=== PATIENT | male | born 1965 | race Caucasian/White ===

== ENCOUNTER 2022-04-24 16:09 | Inpatient (IN) ==
[2022-04-24] MEDS ORDERED: cefTRIAXone SODIUM 1,000 MG/50 ML BAG IV STA (16:54)
[2022-04-24] MEDS ORDERED: SODIUM CHLORIDE 0.9% 1000ML 2,000 ML IV ONE (16:54)
--- NOTE | 2022-04-24 16:56 | Emergency Department Note ---
Impression & Plan Hypoxia, Fever of unknown origin, Breath shortness ED Provider Note NAME: ABBY MACARIO AGE: 56 SEX: M : 1965 ARRIVES VIA: Walk-In INFORMANT: Patient ED PROVIDER(S): Lukas Nava DO CHIEF COMPLAINT: shortness of breath HPI: Patient is a 56-year-old male who presents to the ER with past medical history of COVID back in who presents to the ER for shortness of breath. He notes this been getting worse over the past 6 months and in particu lar the past week. He has not felt well since he was diagnosed with COVID in December 2019. He admits to a cough and fevers and comment since this past in combination with night sweats. Denies any belly pain, nausea, vomiting, or diarrhea. No dysuria, urgency, or frequency. Shortness of breath is worse when he is up moving around. Does not change with lying flat or sitting up. ROS: See above HPI for pertinent positives & negatives. A total of 10 systems reviewed and were otherwise negative. PAST MEDICAL HISTORY:See Below PAST SURGICAL HISTORY:See Below FAMILY HISTORY:See Below SOCIAL HISTORY:See Below HOME MEDICATIONS:See Below ALLERGIES:See Below VITALS:See Below PHYSICAL EXAMINATION: GENERAL: Sitting up in bed, alert, well appearing, well nourished, no distress, non-toxic EYE EXAM: normal conjunctiva. OROPHARYNX: no exudate, no erythema, lips, buccal mucosa, and tongue normal and mucous membranes are moist NECK: supple, no nuchal rigidity, no adenopathy, non-tender LUNGS: Clear to auscultation. Normal chest wall mechanics HEART: Tachycardic, S1 normal and S2 normal ABDOMEN: abdomen soft, non-tender, normo-active bowel sounds, no masses, no rebound or guarding. UPPER EXTREMITIES: upper extremities are grossly normal. LOWER EXTREMITIES: No pitting edema. Cervical bilateral NEURO EXAM: Normal sensorium, cranial nerves II-XII grossly intact, normal speech, no gross weakness of arms, no gross weakness of legs. MEDICAL DECISION MAKING: Patient is a 56-year-old male with no significant past medical history that presents the ER for cough, congestion, fevers and shortness of breath. Upon arrival he is found to be tachycardic borderline febrile and hypoxic at 82 to 83%. No history of COPD asthma or CHF.Due to high volume there is mild delay in getting the patient to the room. IV was established blood work was obtained. Labs show leukocytosis of 10,000. No anemia. INR unremarkable. CT the abdomen pelvis shows mild hyponatremia 133. Magnesium was slightly low at 1.6. T bili at 1.2. LFTs were unremarkable. Troponin was negative. proBNP was normal. Procalcitonin was 0.22. On exam he has no pitting edema. He was ordered 2 L of IV fluids.He was ordered IV Rocephin. UA was pending upon admission. CT angio of the chest was performed due to his significant/marked hypoxia without any focal infiltrate even in light of the negative D-dimer to further assess the lungs. This showed infectious versus inflammatory etiology versus pulmonary edema. Based on his presentation and him improving with the IV fluids and heart rate trending down I do favor that this is most consistent with infectious etiology. He was updated bedside discussed with the hospitalist Haroon and patient was admitted for further work-up.Patient remained on 4 L nasal cannula with pulse ox in the mid 90s throughout his stay in the ER. Triage Nursing notes reviewed. Limited review of prior medical records performed Vital Signs: reviewed and remarkable for Hypoxic, febrile, tachycardic Differential diagnosis: Differential diagnoses includes but is not limited to pneumonia, bronchitis, COPD/Asthma exacerbation, pneumothorax, pulmonary embolism, congestive heart failure, acute coronary syndrome ER treatment provided: See below Diagnostics interpreted by me: ECG: Sinus tach cardia rate 123 Normal axis No PVCs QTC 4 9 Cardiac Monitoring: An order was placed for continuous cardiac monitoring. The monitor shows a rate of 98 with sinus rhythm. Laboratory studies: As stated above and show below. Imaging studies: CT angio chest shows no PEs and likely infectious/inflammatory process Consultation(s): Discussed with Haroon from [facility] service Procedures: none Critical Care: I have personally spent 32 minutes of critical care time in the direct management of this patient. This includes bedside care, interpretation of diagnostic studies, and testing, discussion with consultants, patient, and family members, and other required patient management activities. This 32 minutes is in excess of all separately billable procedures. Past Med/Surg History Medical History Shingles Surgical History No pertinent past surgical history Social History Smoking Status: Never smoker Preferred Language: Palestinian Feels Safe at Home: Yes Allergies Allergies Allergy/AdvReac Type Severity Reaction Status Date / Time dog dander Allergy Severe Unknown Verified 04/24/22 17:20 Home Meds Home Medications Medication Instructions Recorded Confirmed cetirizine 10 mg tablet (Zyrtec) 10 mg PO DAILY 04/24/22 04/24/22 Results & Data (ED) Vital Signs Vital Signs - 24 hr 04/24/22 16:34 04/24/22 17:13 04/24/22 17:15 Temperature 37.6 C H Temperature Source Oral Pulse Rate 128 H 105 H Pulse Rate [Right Finger] 111 H 105 H Pulse Rhythm [Right Finger] Regular Regular Respiratory Rate 20 22 22 Respiratory Effort / Characteristics Labored Labored Respiratory Depth Normal Normal Blood Pressure 125/81 Blood Pressure [Right Arm] 150/84 H Blood Pressure Mean 95 Blood Pressure Mean [Right Arm] 106 Pulse Oximetry 84 L 95 96 Oxygen Delivery Method Room Air Nasal Cannula Nasal Cannula Oxygen Flow Rate 3 3 Sepsis Recent Fever Within 48 Hours No Sepsis New/Unexplained Change in Mental Status N/A Sepsis Action Taken by Nursing No Action Required 04/24/22 17:51 04/24/22 18:42 04/24/22 18:45 Temperature Temperature Source Pulse Rate Pulse Rate [Right Finger] 101 H 101 H 95 H Pulse Rhythm [Right Finger] Respiratory Rate 22 18 18 Respiratory Effort / Characteristics Non-Labored Non-Labored Labored Respiratory Depth Normal Normal Normal Blood Pressure Blood Pressure [Right Arm] 146/89 H 146/89 H Blood Pressure Mean Blood Pressure Mean [Right Arm] 108 108 Pulse Oximetry 93 97 97 Oxygen Delivery Method Nasal Cannula Nasal Cannula Nasal Cannula Oxygen Flow Rate 3 4 4 Sepsis Recent Fever Within 48 Hours Sepsis New/Unexplained Change in Mental Status Sepsis Action Taken by Nursing Laboratory Data Result diagrams: 04/24/22 17:02 04/24/22 17:02 Lab Results 04/24/22 04/24/22 04/24/22 Range/Units 17:02 17:02 17:02 WBC 10.85 H (4.8-10.8) K/uL RBC 4.99 (4.7-6.1) M/uL Hgb 14.5 (14.0-18.0) g/dL POC Hgb (14.0-18.0) g/dl Hct 40.9 L (42-52) % POC Hct (42-52) % MCV 82.0 (80-100) fL MCH 29.1 (25-34) pg MCHC 35.5 (32-36) g/dL RDW Std Deviation 40.1 (36.4-46.3) fL RDW Coeff of King 13.2 (11.5-14.5) % Plt Count 262 (130-400) K/uL MPV 9.8 (7.4-10.4) fL Immature Gran % (Auto) 0.3 % Neut % (Auto) 72.3 % Lymph % (Auto) 22.3 % [place] % (Auto) 4.0 % Eos % (Auto) 1.0 % Baso % (Auto) 0.1 % Neut # (Auto) 7.85 H (1.4-6.5) K/uL Lymph # (Auto) 2.42 (1.2-3.4) K/uL [place] # (Auto) 0.43 (0.11-0.59) K/uL Eos # (Auto) 0.11 (0-0.5) K/uL Baso # (Auto) 0.01 (0-0.2) K/uL Immature Gran # (Auto) 0.03 H (0.00-0.02) K/uL PT (9.0-12.0) Seconds INR (0.9-1.1) APTT (21.0-31.0) Seconds PTT Ratio D-Dimer (0-500) ug/L FEU POC Sodium (135-144) mmol/L Sodium 133 L (136-145) mmol/L POC Potassium (3.3-5.0) mmol/L Potassium 3.9 (3.5-5.1) mmol/L POC Chloride (101-112) mmol/L Chloride 101 (98-107) mmol/L Carbon Dioxide 22 (21-32) mmol/L POC Total CO2 (24-31) mmol/L Anion Gap 10 (3-11) POC Anion Gap (16-25) mmol/L POC BUN (7-18) mg/dl BUN 21 (6-23) mg/dl Creatinine 0.95 (0.6-1.4) mg/dl POC Creatinine (0.6-1.3) mg/dl Est Cr Clr Drug Dosing 72.4 ml/min Est GFR ( Amer) 101.9 ml/min Est GFR (Non-Af Amer) 87.9 ml/min BUN/Creatinine Ratio 22.1 H (10-20) Glucose 99 (70-99(Fasting)) mg/dl POC Glucose (other) (70-99) mg/dl Calcium 9.4 (8.5-10.1) mg/dl POC Ioniz Calcium Mg (1.12-1.32) mmol/l Magnesium 1.6 L (1.7-2.4) mg/dl Total Bilirubin 1.2 H (0.2-1.0) mg/dl AST 25 (13-39) U/L ALT 8 (7-52) U/L Alkaline Phosphatase 66 (34-104) U/L Troponin I High Sens 6.4 (0-20) pg/ml B-Natriuretic Peptide 29 (0-100) pg/ml Total Protein 7.7 (6.0-8.3) gm/dl Albumin 3.8 (3.4-5.0) gm/dl Globulin 3.9 (2.5-4.0) gm/dl Albumin/Globulin Ratio 1.0 (0.9-2) Procalcitonin (0-0.5) ng/ml SARS-CoV-2 (PCR) (Negative) Influenza Type A (PCR) (Neg) Influenza Type B (PCR) (Neg) RSV (RT-PCR) (Neg) 04/24/22 04/24/22 04/24/22 Range/Units 17:02 17:02 17:02 WBC (4.8-10.8) K/uL RBC (4.7-6.1) M/uL Hgb (14.0-18.0) g/dL POC Hgb (14.0-18.0) g/dl Hct (42-52) % POC Hct (42-52) % MCV (80-100) fL MCH (25-34) pg MCHC (32-36) g/dL RDW Std Deviation (36.4-46.3) fL RDW Coeff of King (11.5-14.5) % Plt Count (130-400) K/uL MPV (7.4-10.4) fL Immature Gran % (Auto) % Neut % (Auto) % Lymph % (Auto) % [place] % (Auto) % Eos % (Auto) % Baso % (Auto) % Neut # (Auto) (1.4-6.5) K/uL Lymph # (Auto) (1.2-3.4) K/uL [place] # (Auto) (0.11-0.59) K/uL Eos # (Auto) (0-0.5) K/uL Baso # (Auto) (0-0.2) K/uL Immature Gran # (Auto) (0.00-0.02) K/uL PT 11.7 (9.0-12.0) Seconds INR 1.1 (0.9-1.1) APTT 27.9 (21.0-31.0) Seconds PTT Ratio 1.0 D-Dimer 380 (0-500) ug/L FEU POC Sodium (135-144) mmol/L Sodium (136-145) mmol/L POC Potassium (3.3-5.0) mmol/L Potassium (3.5-5.1) mmol/L POC Chloride (101-112) mmol/L Chloride (98-107) mmol/L Carbon Dioxide (21-32) mmol/L POC Total CO2 (24-31) mmol/L Anion Gap (3-11) POC Anion Gap (16-25) mmol/L POC BUN (7-18) mg/dl BUN (6-23) mg/dl Creatinine (0.6-1.4) mg/dl POC Creatinine (0.6-1.3) mg/dl Est Cr Clr Drug Dosing ml/min Est GFR ( Amer) ml/min Est GFR (Non-Af Amer) ml/min BUN/Creatinine Ratio (10-20) Glucose (70-99(Fasting)) mg/dl POC Glucose (other) (70-99) mg/dl Calcium (8.5-10.1) mg/dl POC Ioniz Calcium Mg (1.12-1.32) mmol/l Magnesium (1.7-2.4) mg/dl Total Bilirubin (0.2-1.0) mg/dl AST (13-39) U/L ALT (7-52) U/L Alkaline Phosphatase (34-104) U/L Troponin I High Sens Cancelled (0-20) pg/ml B-Natriuretic Peptide (0-100) pg/ml Total Protein (6.0-8.3) gm/dl Albumin (3.4-5.0) gm/dl Globulin (2.5-4.0) gm/dl Albumin/Globulin Ratio (0.9-2) Procalcitonin 0.22 (0-0.5) ng/ml SARS-CoV-2 (PCR) (Negative) Influenza Type A (PCR) (Neg) Influenza Type B (PCR) (Neg) RSV (RT-PCR) (Neg) 04/24/22 04/24/22 Range/Units 17:09 17:36 WBC (4.8-10.8) K/uL RBC (4.7-6.1) M/uL Hgb (14.0-18.0) g/dL POC Hgb 14.6 (14.0-18.0) g/dl Hct (42-52) % POC Hct 43 (42-52) % MCV (80-100) fL MCH (25-34) pg MCHC (32-36) g/dL RDW Std Deviation (36.4-46.3) fL RDW Coeff of King (11.5-14.5) % Plt Count (130-400) K/uL MPV (7.4-10.4) fL Immature Gran % (Auto) % Neut % (Auto) % Lymph % (Auto) % [place] % (Auto) % Eos % (Auto) % Baso % (Auto) % Neut # (Auto) (1.4-6.5) K/uL Lymph # (Auto) (1.2-3.4) K/uL [place] # (Auto) (0.11-0.59) K/uL Eos # (Auto) (0-0.5) K/uL Baso # (Auto) (0-0.2) K/uL Immature Gran # (Auto) (0.00-0.02) K/uL PT (9.0-12.0) Seconds INR (0.9-1.1) APTT (21.0-31.0) Seconds PTT Ratio D-Dimer (0-500) ug/L FEU POC Sodium 136 (135-144) mmol/L Sodium (136-145) mmol/L POC Potassium 3.9 (3.3-5.0) mmol/L Potassium (3.5-5.1) mmol/L POC Chloride 101 (101-112) mmol/L Chloride (98-107) mmol/L Carbon Dioxide (21-32) mmol/L POC Total CO2 21 L (24-31) mmol/L Anion Gap (3-11) POC Anion Gap 19.0 (16-25) mmol/L POC BUN 20 H (7-18) mg/dl BUN (6-23) mg/dl Creatinine (0.6-1.4) mg/dl POC Creatinine 0.9 (0.6-1.3) mg/dl Est Cr Clr Drug Dosing ml/min Est GFR ( Amer) ml/min Est GFR (Non-Af Amer) ml/min BUN/Creatinine Ratio (10-20) Glucose (70-99(Fasting)) mg/dl POC Glucose (other) 106 H (70-99) mg/dl Calcium (8.5-10.1) mg/dl POC Ioniz Calcium Mg 1.23 (1.12-1.32) mmol/l Magnesium (1.7-2.4) mg/dl Total Bilirubin (0.2-1.0) mg/dl AST (13-39) U/L ALT (7-52) U/L Alkaline Phosphatase (34-104) U/L Troponin I High Sens (0-20) pg/ml B-Natriuretic Peptide (0-100) pg/ml Total Protein (6.0-8.3) gm/dl Albumin (3.4-5.0) gm/dl Globulin (2.5-4.0) gm/dl Albumin/Globulin Ratio (0.9-2) Procalcitonin (0-0.5) ng/ml SARS-CoV-2 (PCR) NEGATIVE (Negative) Influenza Type A (PCR) Negative (Neg) Influenza Type B (PCR) Negative (Neg) RSV (RT-PCR) Negative (Neg) Administered Medications Discontinued Medications Sodium Chloride (Nss 1000ml) 2,000 mls @ 999 mls/hr IV .Q2H1M ONE Stop: 04/24/22 18:54 Last Admin: 04/24/22 18:07 Dose: 999 mls/hr Documented by: [id number] Ceftriaxone Sodium (Rocephin) 1,000 mg in 50 mls @ 100 mls/hr IV NOW STA Stop: 04/24/22 17:23 Last Admin: 04/24/22 18:54 Dose: 100 mls/hr Documented by: [id number] Ioversol (Optiray 320 125ml) 120 ml IV ONCE ONE Stop: 04/24/22 17:38 Last Admin: 04/24/22 17:37 Dose: 120 ml Documented by: [id number] Imaging Data Radiologist's Impression: Chest X-Ray 04/24/22 16:54 XR chest 1V portable CLINICAL HISTORY: SEPSIS TECHNIQUE: Single frontal radiograph of the chest was obtained. Comparison: None available at the time of this dictation. FINDINGS: No lines and tubes are seen. The cardiomediastinal silhouette is normal. Prominence and cephalization of the vasculature is seen. No evidence of pleural effusion or pneumothorax. IMPRESSION: Mild pulmonary edema. ACT 112: Negative or not required by law. Electronically signed by: Remy Rendon M.D. 04/24/2022 5:24 PM Chest CTA 04/24/22 17:27 CT ANGIOGRAM OF THE CHEST CLINICAL HISTORY: Dyspnea. COMPARISON STUDY: Chest x-ray dated 04/24/2022. TECHNIQUE: Following the IV administration of 120 cc of Optiray 320, CT angiogram of the chest was performed from the upper abdomen to the thoracic inlet utilizing the pulmonary embolus protocol. Images are reviewed in the axial, sagittal, and coronal planes. 3-D MIPS images are created and assessed. IV contrast was administered without complication. A dose lowering technique was utilized adhering to the principles of ALARA. CT DOSE: 269.58 mGy.cm FINDINGS: Thyroid: Imaged portions of the thyroid gland are normal in size and attenuation. Thoracic aorta: The thoracic aorta is normal in caliber and demonstrates standard 3-vessel arch anatomy. No dissection is seen. Pulmonary vasculature: The pulmonary trunk is normal in caliber. There are no filling defects identified in main, lobar, or segmental pulmonary branches to suggest pulmonary embolus. Heart: The heart is normal in size and without pericardial effusion. The coronary arteries are densely calcified. Lungs and pleural spaces: There is mild emphysematous change. Extensive groundglass consolidation is seen throughout both lungs, left greater than right. Some of this demonstrates a "crazy paving" appearance. Atelectasis is seen at the lung bases, right greater than left. There is trace right pleural effusion. The trachea and central airways are clear. Mediastinum: There are mildly enlarged mediastinal lymph nodes. Prevascular nodes measure up to 13 mm in short axis. Pretracheal nodes measure up to 10 mm short axis, and a high left paratracheal node measures up to 18 mm in short axis. Sophy: Mildly enlarged hilar lymph nodes measure up to 11 mm in short axis. Axillae: There is no axillary lymphadenopathy. Upper abdomen: The spleen is mildly enlarged measuring over 13 cm in length. Partially visualized upper abdominal viscera is within normal limits. Skeletal structures: No lytic or blastic bony lesions are seen. IMPRESSION: 1. There is no evidence of pulmonary embolus in the main, lobar, or segmental pulmonary arteries. 2. Extensive groundglass consolidation is seen throughout both lungs as above. Given the reported history of sepsis this likely represents an in fectious/inflammatory pneumonitis. 3. Given the somewhat atypical "crazy paving" appearance, a follow-up chest CT in 3-4 months time is recommended for reassessment and to document resolution. This carries a broad differential, and other etiologies such as pulmonary edema, pulmonary hemorrhage, pulmonary alveolar proteinosis, sarcoidosis, or a drug- induced pneumonitis could also have this appearance. 4. Mild emphysema. 5. Mildly enlarged mediastinal and hilar lymph nodes are likely reactive. These can also be reassessed at follow-up. 6. Mild splenomegaly. 7. Trace right pleural effusion. ACT 112: Negative or not required by law. Electronically signed by: Zain Melton M.D. 04/24/2022 6:27 PM Discharge Plan Visit Data Chief Complaint: Fever Stated Complaint: FEVER, BODY ACHES ED Provider: Lukas Nava Discharge Problem: Hypoxia, Fever of unknown origin, Breath shortness Forms Stand Alone Forms: My ERPLY Prescriptions Prescriptions: No Action cetirizine [Zyrtec] 10 mg Tablet 10 mg PO DAILY RF: 0 Referrals Referrals: PCP,NO [Primary Care Provider] -
--- NOTE | 2022-04-24 17:26 | XRay Report ---
XR chest 1V portable CLINICAL HISTORY: SEPSIS TECHNIQUE: Single frontal radiograph of the chest was obtained. Comparison: None available at the time of this dictation. FINDINGS: No lines and tubes are seen. The cardiomediastinal silhouette is normal. Prominence and cephalization of the vasculature is seen. No evidence of pleural effusion or pneumothorax. IMPRESSION: Mild pulmonary edema. ACT 112: Negative or not required by law. Electronically signed by: Remy Rendon M.D. 04/24/2022 5:24 PM
[2022-04-24 17:30] LABS: iSTAT Creatinine 0.9 mg/dl (0.6-1.3); iSTAT Hemoglobin 14.6 g/dl (14.0-18.0); iSTAT Ionized Calcium 1.23 mmol/l (1.12-1.32); iSTAT Potassium 3.9 mmol/L (3.3-5.0)
[2022-04-24 17:36] LABS: Hematocrit (blood only) 40.9 % (42-52); Hemoglobin 14.5 g/dL (14.0-18.0); Mean Corpuscular Hemoglobin 29.1 pg (25-34); Mean Corpuscular Hgb Conc 35.5 g/dL (32-36); Mean Platelet Volume 9.8 fL (7.4-10.4); Platelet Count 262 K/uL (130-400); RDW Coefficient of Variation 13.2 % (11.5-14.5); RDW Standard Deviation 40.1 fL (36.4-46.3); Red Blood Count 4.99 M/uL (4.7-6.1); White Blood Count 10.85 K/uL (4.8-10.8)
[2022-04-24] MEDS ORDERED: OPTIRAY 320 125ml IV ONE (17:37)
[2022-04-24 17:44] LABS: D Dimer 380 ug/L FEU (0-500); INR 1.1 (0.9-1.1); Partial Thromboplastin Time 27.9 Seconds (21.0-31.0); Prothrombin Time 11.7 Seconds (9.0-12.0)
[2022-04-24 17:56] LABS: Basophils # (auto) 0.01 K/uL (0-0.2); Basophils % (auto) 0.1 %; Eosinophils # (auto) 0.11 K/uL (0-0.5); Immature Granulocytes # (auto) 0.03 K/uL (0.00-0.02); Immature Granulocytes % (auto) 0.3 %; Lymphocytes # (auto) 2.42 K/uL (1.2-3.4); Lymphocytes % (auto) 22.3 %; Monocytes # (auto) 0.43 K/uL (0.11-0.59); Neutrophils # (auto) 7.85 K/uL (1.4-6.5); Neutrophils % (auto) 72.3 %
[2022-04-24 18:00] LABS: Albumin Level 3.8 gm/dl (3.4-5.0); BUN Creatinine Ratio 22.1 (10-20); Bilirubin,Total 1.2 mg/dl (0.2-1.0); Calcium 9.4 mg/dl (8.5-10.1); Creatinine Clr Calc Pharmacy 72.4 ml/min; Est GFR (African American) 101.9 ml/min; Est GFR (Non-African American) 87.9 ml/min; Globulin 3.9 gm/dl (2.5-4.0); Magnesium 1.6 mg/dl (1.7-2.4); Potassium 3.9 mmol/L (3.5-5.1); Total Protein 7.7 gm/dl (6.0-8.3)
[2022-04-24 18:02] LABS: Troponin I High Sensitivity 6.4 pg/ml (0-20)
[2022-04-24 18:20] LABS: Influenza A virus by PCR Negative (Neg); Influenza B virus by PCR Negative (Neg); RSV by PCR Negative (Neg); SARS CoV2 RNA(COVID-19) InHosp NEGATIVE (Negative)
--- NOTE | 2022-04-24 18:29 | CT Scan Report ---
CT ANGIOGRAM OF THE CHEST CLINICAL HISTORY: Dyspnea. COMPARISON STUDY: Chest x-ray dated 04/24/2022. TECHNIQUE: Following the IV administration of 120 cc of Optiray 320, CT angiogram of the chest was pe rformed from the upper abdomen to the thoracic inlet utilizing the pulmonary embolus protocol. Images are reviewed in the axial, sagittal, and coronal planes. 3-D MIPS images are created and assessed. I V contrast was administered without complication. A dose lowering technique was utilized adhering to the principles of ALARA. CT DOSE: 269.58 mGy.cm FINDINGS: Thyroid: Imaged portions of the thyroid gland are normal in size and attenuation. Thoracic aorta: The thoracic aorta is normal in caliber and demonstrates standard 3-vessel arch anato my. No dissection is seen. Pulmonary vasculature: The pulmonary trunk is normal in caliber. There are no filling defects identif ied in main, lobar, or segmental pulmonary branches to suggest pulmonary embolus. Heart: The heart is normal in size and without pericardial effusion. The coronary arteries are densel y calcified. Lungs and pleural spaces: There is mild emphysematous change. Extensive groundglass consolidation is seen throughout both lungs, left greater than right. Some of this demonstrates a "crazy paving" appea nahomy. Atelectasis is seen at the lung bases, right greater than left. There is trace right pleural e ffusion. The trachea and central airways are clear. Mediastinum: There are mildly enlarged mediastinal lymph nodes. Prevascular nodes measure up to 13 mm in short axis. Pretracheal nodes measure up to 10 mm short axis, and a high left paratracheal node m easures up to 18 mm in short axis. Sophy: Mildly enlarged hilar lymph nodes measure up to 11 mm in short axis. Axillae: There is no axillary lymphadenopathy. Upper abdomen: The spleen is mildly enlarged measuring over 13 cm in length. Partially visualized upp er abdominal viscera is within normal limits. Skeletal structures: No lytic or blastic bony lesions are seen. IMPRESSION: 1. There is no evidence of pulmonary embolus in the main, lobar, or segmental pulmonary arteries. 2. Extensive groundglass consolidation is seen throughout both lungs as above. Given the reported his tory of sepsis this likely represents an infectious/inflammatory pneumonitis. 3. Given the somewhat atypical "crazy paving" appearance, a follow-up chest CT in 3-4 months time is recommended for reassessment and to document resolution. This carries a broad differential, and other etiologies such as pulmonary edema, pulmonary hemorrhage, pulmonary alveolar proteinosis, sarcoidosi s, or a drug-induced pneumonitis could also have this appearance. 4. Mild emphysema. 5. Mildly enlarged mediastinal and hilar lymph nodes are likely reactive. These can also be reassesse d at follow-up. 6. Mild splenomegaly. 7. Trace right pleural effusion. ACT 112: Negative or not required by law. Electronically signed by: Zain Melton M.D. 04/24/2022 6:27 PM
[2022-04-24] MEDS ORDERED: ACETAMINOPHEN 325 MG TAB PO STA (18:48)
[2022-04-24 19:15] LABS: Appearance Urine Clear (Clear); Bacteria Urine Automated Negative (Negative); Bilirubin Urine Negative (Negative); Blood Urine Negative (Negative); Color Urine Yellow; Glucose Urine UA Negative (Negative); Ketones Urine Negative (Negative); Leukocyte Esterase Urine Negative (Negative); Nitrite Urine Negative (Negative); Protein Urine Trace (Negative); RBC Urine Automated 0-4 /hpf (0-4); Specific Gravity Urine > 1.045 (1.000-1.030); Urobilinogen Urine Negative (Negative); pH Urine 5.5 (4.5-7.5)
--- NOTE | 2022-04-24 19:22 | History & Physical Report ---
Date of Service April 24, 2022 Assessment & Plan (1) Abnormal CT scan of lung: Plan: Patient with history of COVID in 2019- no imaging at that time or previously - has remained dyspneic since 2019, but recently has worsened with 5 day history of fevers, increase in cough and now with oxygen need - DDX: Viral illness vs. PJP/other bacterial vs. NSIP vs. other - will send PJP PCR - Will send respiratory biofire - Fungitell - Sputum culture - HScTNI and BNP negative- likely not cardiac related - Flutter valve for his atelectasis - Appreciate Pulmonary consultation (2) Hypoxia: Plan: As above - CTPE negative - trace pleural effusion - Flutter valve QID - PRN albuterol (3) Hyponatremia: Plan: Mild at 133 Likely related to increase in free water losses with sweating and decrease intake (4) Hypomagnesemia: Plan: Mag 1.6 3 GM IV magnesium History of Present Illness Primary Care Provider: NO PCP 56 YOM with no PCP- Medical history of COVID and urticarial skin eruption from pet exposure in 2020. Patient reports that he had COVID in 2019 and has never really gotten back to a cardiorespiratory baseline. The patient comes to the EMD today for complaints of 4 day history of fevers/chills and increase in dyspnea and cough. He has is coughing up think clear secretions without blood. He reports increase temperature to 101.3 on . He also endorses nightly sweats since and waking up every morning with wet shirt and sheets. He feels his energy remains about the same. 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 He feels more dyspneic and tired with any multi-muscle exercise like squats, bench, or pull ups. If he is just doing leg press or sitting he can get through his sets and reps. In the EMD the patient had routine labs performed, blood cultures, and PCT done. He had CT scan of his chest performed- which Extensive ground-glass consolidation is seen throughout both lungswith a "crazy paving" pattern. The patient denies any travel, any new pets (only has 4 dogs) no birds, no new medications. He does vape and does occasionally smoke marijuana. He does endorse high risk behavior- so informed verbal consent for HIV has been sent. Patient received dose of Rocephin in the EMD. When he was treated above for her skin eruption he was placed on steroids- and feels that he may have felt better during that time. Overall this is wide differential, will send sputum culture, PCJ PCR, Fungitell. His PCT is negative and WBC at 11. Will hold on further antibiotics. Will consult pulmonary for evaluation for further workup Allergies Allergy/AdvReac Type Severity Reaction Status Date / Time dog dander Allergy Severe Unknown Verified 04/24/22 17:20 Home Medications Medication Instructions Recorded Confirmed Type cetirizine 10 mg tablet (Zyrtec) 10 mg PO DAILY 04/24/22 04/24/22 History Past Med/Surg History Medical History Shingles Surgical History No pertinent past surgical history Social History Smoking Status: Never smoker Hx Alcohol Use: Yes Alcohol type: beer Hx Substance Use: Yes Last Used Substance: Days (ago) Preferred Language: Mozambican Communication Ability: Effective Hand Ornament Maker Required: No Beliefs That Will Affect Care: None Current Living Situation: Other Current Living Situation Comment: lives in large 7 bedroom home with 4 dogs and 2 room mates. Other Information That Helps Us Care for You: No Feels Safe at Home: Yes Safety Concerns: Feels Safe At This Time Assistive Devices: Oxygen - Continuous Assistive Devices Comment: no assistive devices at home Review of Systems Review of Systems: REVIEW OF SYSTEMS: Constitutional: No fever, sweats or chills Eyes: No diplopia, no worsening or blurred vision ENT: normal hearing, no trouble swallowing Respiratory: (+) cough, sputum, dyspnea at rest or on exertion Cardiovascular: No chest pain, tightness or palpitations Abdomen: No pain, nausea, vomiting, diarrhea or constipation Musculoskeletal: No joint pain, calf pain, swelling Neurologic: No weakness, numbness/tingling, or balance problems Psychiatric: No anxiety or depression Skin: No rash or itch Physical Exam Physical Exam: PHYSICAL EXAM: General: awake, alert, no apparent distress Head: Normocephalic, atraumatic ENT: PERRL, EOMI, no pharyngeal exudate, mucous membranes moist Neuro: AAO x 3, speech clear and appropriate, strength intact bilaterally 5/5, sensation intact and equal all extremities and dermatomes, no pronator drift Chest: equal rise and fall of the chest, no accessory muscle use, no heaves or thrills, Clear to auscultation, on room air, Cardiac: Regular rate and rhythm, telemetry reviewed, skin warm dry, cap refill <3 seconds, peripheral pulses +2 no JVD, no murmur, no edema GI: NABS x 4 quadrants, soft, nontender to palpation, no rebound, guarding or tenderness : Spontaneously voiding, no pain, no CVA tenderness, Extremities: Normal inspection, no peripheral edema or erythema, calfs nontender to palpation Psych: Normal mood and affect Skin: no rash or erythema Results & Data Results & Data ([facility]) Vital Signs (Past 12 Hours) Vital Signs Temp Pulse Pulse Resp BP BP Pulse Ox 04/24/22 19:10 97 H 18 146/89 H 98 04/24/22 18:45 95 H 18 146/89 H 97 04/24/22 18:42 101 H 18 97 04/24/22 17:51 101 H 22 146/89 H 93 04/24/22 17:15 105 H 22 96 04/24/22 17:13 105 H 111 H 22 150/84 H 95 04/24/22 16:34 37.6 C H 128 H 20 125/81 84 L Laboratory Results Abnormal lab results 04/24/22 04/24/22 04/24/22 Range/Units 17:02 17:02 17:09 WBC 10.85 H (4.8-10.8) K/uL Hct 40.9 L (42-52) % Neut # (Auto) 7.85 H (1.4-6.5) K/uL Immature Gran # (Auto) 0.03 H (0.00-0.02) K/uL Sodium 133 L (136-145) mmol/L POC Total CO2 21 L (24-31) mmol/L POC BUN 20 H (7-18) mg/dl BUN/Creatinine Ratio 22.1 H (10-20) POC Glucose (other) 106 H (70-99) mg/dl Magnesium 1.6 L (1.7-2.4) mg/dl Total Bilirubin 1.2 H (0.2-1.0) mg/dl Ur Specific Oden (1.000-1.030) Urine Protein (Negative) U Hyaline Cast (Auto) (0-5) /lpf U Epithel Cells (Auto) (0-5) /lpf 04/24/22 Range/Units 18:13 WBC (4.8-10.8) K/uL Hct (42-52) % Neut # (Auto) (1.4-6.5) K/uL Immature Gran # (Auto) (0.00-0.02) K/uL Sodium (136-145) mmol/L POC Total CO2 (24-31) mmol/L POC BUN (7-18) mg/dl BUN/Creatinine Ratio (10-20) POC Glucose (other) (70-99) mg/dl Magnesium (1.7-2.4) mg/dl Total Bilirubin (0.2-1.0) mg/dl Ur Specific Oden > 1.045 H (1.000-1.030) Urine Protein Trace H (Negative) U Hyaline Cast (Auto) 5-10 H (0-5) /lpf U Epithel Cells (Auto) 5-10 H (0-5) /lpf Diagnostic Findings Chest X-Ray 04/24/22 16:54 XR chest 1V portable CLINICAL HISTORY: SEPSIS TECHNIQUE: Single frontal radiograph of the chest was obtained. Comparison: None available at the time of this dictation. FINDINGS: No lines and tubes are seen. The cardiomediastinal silhouette is normal. Prominence and cephalization of the vasculature is seen. No evidence of pleural effusion or pneumothorax. IMPRESSION: Mild pulmonary edema. ACT 112: Negative or not required by law. Electronically signed by: Remy Rendon M.D. 04/24/2022 5:24 PM Chest CTA 04/24/22 17:27 CT ANGIOGRAM OF THE CHEST CLINICAL HISTORY: Dyspnea. COMPARISON STUDY: Chest x-ray dated 04/24/2022. TECHNIQUE: Following the IV administration of 120 cc of Optiray 320, CT angiogram of the chest was performed from the upper abdomen to the thoracic inlet utilizing the pulmonary embolus protocol. Images are reviewed in the a xial, sagittal, and coronal planes. 3-D MIPS images are created and assessed. IV contrast was administered without complication. A dose lowering technique was utilized adhering to the principles of ALARA. CT DOSE: 269.58 mGy.cm FINDINGS: Thyroid: Imaged portions of the thyroid gland are normal in size and attenuation. Thoracic aorta: The thoracic aorta is normal in caliber and demonstrates standard 3-vessel arch anatomy. No dissection is seen. Pulmonary vasculature: The pulmonary trunk is normal in caliber. There are no filling defects identified in main, lobar, or segmental pulmonary branches to suggest pulmonary embolus. Heart: The heart is normal in size and without pericardial effusion. The coronary arteries are densely calcified. Lungs and pleural spaces: There is mild emphysematous change. Extensive groundglass consolidation is seen throughout both lungs, left greater than right. Some of this demonstrates a "crazy paving" appearance. Atelectasis is seen at the lung bases, right greater than left. There is trace right pleural effusion. The trachea and central airways are clear. Mediastinum: There are mildly enlarged mediastinal lymph nodes. Prevascular nodes measure up to 13 mm in short axis. Pretracheal nodes measure up to 10 mm short axis, and a high left paratracheal node measures up to 18 mm in short axis. Sophy: Mildly enlarged hilar lymph nodes measure up to 11 mm in short axis. Axillae: There is no axillary lymphadenopathy. Upper abdomen: The spleen is mildly enlarged measuring over 13 cm in length. Partially visualized upper abdominal viscera is within normal limits. Skeletal structures: No lytic or blastic bony lesions are seen. IMPRESSION: 1. There is no evidence of pulmonary embolus in the main, lobar, or segmental pulmonary arteries. 2. Extensive groundglass consolidation is seen throughout both lungs as above. Given the reported history of sepsis this likely represents an infectious/inflammatory pneumonitis. 3. Given the somewhat atypical "crazy paving" appearance, a follow-up chest CT in 3-4 months time is recommended for reassessment and to document resolution. This carries a broad differential, and other etiologies such as pulmonary edema, pulmonary hemorrhage, pulmonary alveolar proteinosis, sarcoidosis, or a drug- induced pneumonitis could also have this appearance. 4. Mild emphysema. 5. Mildly enlarged mediastinal and hilar lymph nodes are likely reactive. These can also be reassessed at follow-up. 6. Mild splenomegaly. 7. Trace right pleural effusion. ACT 112: Negative or not required by law. Electronically signed by: Zain Melton M.D. 04/24/2022 6:27 PM Medications Administered Home Medications cetirizine 10 mg tablet (Zyrtec) 10 mg PO DAILY 04/24/22 [History Confirmed 04/24/22] Active Medications Magnesium Sulfate/Dextrose (Magnesium Sulfate / D5w) 1 gm in 100 mls @ 50 mls/hr IV Q2H EZIO Stop: 04/25/22 01:14 Last Admin: 04/24/22 19:28 Dose: 50 mls/hr Documented by: Magnesium Sulfate/Dextrose (Magnesium Sulfate / D5w) 1 gm in 100 mls @ 50 mls/hr IV Q2H EZIO Stop: 04/25/22 01:14 Last Admin: 04/24/22 19:28 Dose: 50 mls/hr Documented by: [id number] Discontinued Medications Acetaminophen (Acetaminophen 325 Mg Tab) 650 mg PO NOW STA Stop: 04/24/22 18:49 Last Admin: 04/24/22 19:28 Dose: 650 mg Documented by: [id number] Sodium Chloride (Nss 1000ml) 2,000 mls @ 999 mls/hr IV .Q2H1M ONE Stop: 04/24/22 18:54 Last Admin: 04/24/22 18:07 Dose: 999 mls/hr Documented by: [id number] Ceftriaxone Sodium (Rocephin) 1,000 mg in 50 mls @ 100 mls/hr IV NOW STA Stop: 04/24/22 17:23 Last Infusion: 04/24/22 19:27 Dose: 0 mls/hr Documented by: [id number] Admin: 04/24/22 18:54 Dose: 100 mls/hr Documented by: [id number] Ioversol (Optiray 320 125ml) 120 ml IV ONCE ONE Stop: 04/24/22 17:38 Last Admin: 04/24/22 17:37 Dose: 120 ml Documented by: [id number] ECG Additional Comments: Sinus tachycardia Possible Left atrial enlargement Borderline ECG No previous ECGs available Code Status & VTE Plan Code Status CODE: FULL VTE: SCDS, Lovenox 40mg subq daily VTE Prophylaxis Plan VTE Prophylaxis will be ordered: Yes Supervising Physician Co-Signing Physician Notes I personally saw and examined the patient. I verified all ogden points and agree with SADIQ Ponce with the following exceptions and/or additions: 56 year old male who presents with hypoxia, fever, chills and shortness of breath. Appears to have two histories of shortness of breath. He has never fully recovered from COVID with decreased exercise tolerence since last year. He was not hospitalized for this. On top of this appears to be more acute illness the last 3-4 days with associated increased productive cough, fever and chills. 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 Biofire pending. Would defer further antibiotics pending pulmonology review to decide on bronchoscopy vs. trial of antibiotics and repeat CT as outpatient. PG Care Time/CCT Total # of Minutes Spent Total Time Spent with Patient: Total time spent is greater than 50% in coordination of care (as documented) at patient's floor/unit and/or counseling patient: Coding Level of Care Code 53141 Initial Inpt Care Lvl [address] scan of lung R91.8 Hypoxia R09.02 Hyponatremia E87.1 Hypomagnesemia E83.42
[2022-04-24] MEDS: MAGNESIUM SULFATE / D5W 1 GM/100 ML BAG IV SCH ×3 (19:28→21:57)
[2022-04-24] MEDS ORDERED: ALBUTEROL 0.083% NEBU SOLN 3 ML VIAL NEB STA (20:20)
[2022-04-24 20:33] LABS: Adenovirus PCR Not Detected (NotDetected); Bordetella parapertussis PCR Not Detected (NotDetected); Bordetella pertussis PCR Not Detected (NotDetected); Chlamydia pneumoniae PCR Not Detected (NotDetected); Coronavirus 229E PCR Not Detected (NotDetected); Coronavirus CoV-2 (COVID19)PCR Not Detected (NotDetected); Coronavirus HKU1 PCR Not Detected (NotDetected); Coronavirus NL63 PCR Not Detected (NotDetected); Coronavirus OC43PCR Not Detected (NotDetected); Human Metapneumovirus PCR Not Detected (NotDetected); Influenza A PCR Not Detected (NotDetected); Influenza B PCR Not Detected (NotDetected); Mycoplasma pneumoniae PCR Not Detected (NotDetected); Parainfluenza Virus 1 PCR Not Detected (NotDetected); Parainfluenza Virus 2 PCR Not Detected (NotDetected); Parainfluenza Virus 3 PCR Not Detected (NotDetected); Parainfluenza Virus 4 PCR Not Detected (NotDetected); Respiratory Syncytial VirusPCR Not Detected (NotDetected); Rhinovirus/Enterovirus PCR Not Detected (NotDetected)
[2022-04-24] MEDS ORDERED: ALBUTEROL 0.083% NEBU SOLN 3 ML VIAL NEB PRN (21:17)
[2022-04-25] MEDS: ACETAMINOPHEN 325 MG TAB PO PRN ×3 (04:34→18:44)
[2022-04-25 07:45] LABS: Basophils # (auto) 0.01 K/uL (0-0.2); Basophils % (auto) 0.1 %; Eosinophils # (auto) 0.15 K/uL (0-0.5); Eosinophils % (auto) 1.6 %; Hematocrit (blood only) 35.6 % (42-52); Hemoglobin 12.5 g/dL (14.0-18.0); Immature Granulocytes # (auto) 0.02 K/uL (0.00-0.02); Immature Granulocytes % (auto) 0.2 %; Lymphocytes # (auto) 1.64 K/uL (1.2-3.4); Mean Corpuscular Hemoglobin 29.3 pg (25-34); Mean Corpuscular Hgb Conc 35.1 g/dL (32-36); Mean Corpuscular Volume 83.4 fL (80-100); Mean Platelet Volume 9.8 fL (7.4-10.4); Monocytes # (auto) 0.46 K/uL (0.11-0.59); Monocytes % (auto) 4.8 %; Neutrophils # (auto) 7.34 K/uL (1.4-6.5); Neutrophils % (auto) 76.3 %; Platelet Count 238 K/uL (130-400); RDW Coefficient of Variation 13.2 % (11.5-14.5); RDW Standard Deviation 39.8 fL (36.4-46.3); Red Blood Count 4.27 M/uL (4.7-6.1); White Blood Count 9.62 K/uL (4.8-10.8)
[2022-04-25 08:10] LABS: BUN Creatinine Ratio 20.7 (10-20); Calcium 8.1 mg/dl (8.5-10.1); Creatinine Clr Calc Pharmacy 93.8 ml/min; Est GFR (Non-African American) 97.5 ml/min; Potassium 4.1 mmol/L (3.5-5.1)
--- NOTE | 2022-04-25 08:21 | Electrocardiogram Report ---
Test Reason : Blood Pressure : / mmHG Vent. Rate : 123 BPM Atrial Rate : 123 BPM P-R Int : 190 ms QRS Dur : 070 ms QT Int : 286 ms P-R-T Axes : 044 000 060 degrees QTc Int : 409 ms Poor data quality, interpretation may be adversely affected Sinus tachycardia Normal ECG No previous ECGs available Confirmed by Derrick Jones ([id number]) on 04/25/2022 8:21:30 AM Referred By: REFERRED SELF Confirmed By:Derrick Jones
[2022-04-25] MEDS: CETIRIZINE HCL 10 MG TABLET PO SCH (08:37)
[2022-04-25] MEDS ORDERED: ENOXAPARIN INJ 40 MG/0.4 ML SYR SQ SCH (09:00)
--- NOTE | 2022-04-25 10:29 | XCELERA ---
[id number]
--- NOTE | 2022-04-25 11:22 | Hospitalist Progress Note ---
Date of Service April 25, 2022 Assessment & Plan (1) Abnormal CT scan of lung: Plan: Acute hypoxic respiratory failure, shortness of breath. 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 Family also worked in similar environment and developed COPD, no history of tobacco use. Continue SPO2 goal greater than 90%. Patient fatigued and desaturates easily walking today. Currently on 4 L. Procalcitonin on admit normal PJP PCR pending Respiratory bio fire negative Fungitell pending Mycoplasma pending Legionella pending HIV pending BMP negative, troponin negative. Unlikely ACS/acute cardiac presentation.? Post viral cardiomyopathy from COVID, although this seems unlikely with prima rily lung pathology above. Obtained for rule out, normal. Pulmonary consulted. Potentially concerning for PJP, Rocephin/azithromycin initially started. Rocephin switched to Bactrim for PJP coverage in addition to burst prednisone 40 mg p.o. twice daily x5 days then taper. Bronchoscopy scheduled for tomorrow morning. Appreciate recommendations. JENNIFER with reflex, RF pending N.p.o. midnight (2) Hypoxia: Plan: As noted (3) Hyponatremia: Plan: Mild, maintain euvolemia and trend. (4) Hypomagnesemia: Plan: Mag 1.6, received 3 g repletion, subsequently normalized Plan: Isolated hyperbilirubinemia Total bili 1.2 Trend, if remains elevated obtain direct No clinical signs of gallbladder pathology Admission and Anticipated Discharge Date Admission Date: April 24, 2022 Subjective Seen at the bedside this morning. He reports he has continued to have fever, chills, and night sweats for the last 4 days. Feels about the same today as he did yesterday. Notes he works out a lot and normally has good exercise tolerance, but has never really recovered from COVID which she had in 2019 and feels he is gradually declined and exercise tolerance over the preceding 6 months and greatly worsened in the last 4 days. He denies chest pain/chest pressure/shortness of breath with his symptoms. He was not seen for COVID in the hospital, and has no history of prior CT scans. He notes he did work in a glass [employer] factory often unmasked when he was younger. Has family members with COPD and lung cancer despite no tobacco use. He reports he has had generally clear-colored sputum production. Review of Systems Review of Systems: All systems reviewed & are unremarkable except as noted in Subjective Physical Exam Physical Exam: General: A&Ox3. NAD. Cooperative. HEENT: Atraumatic, normocephalic. And hearing grossly intact Pulm: Grossly clear, no wheezes on inspiration or forced expiration. Very faint fine crackles in the bases, no rales/fine crackles appreciated superiorly. Symmetrical chest rise. Remains on 4 L of oxygen Cardiac: RRR, -mrg. Radial pulses intact and symmetrical. Extremities: Warm, dry. Moving all extremities equally. Sensation soft touch intact in hands bilaterally Results & Data Results & Data ([facility]) Vital Signs (Past 12 Hours) Vital Signs Temp Pulse Resp BP Pulse Ox 04/25/22 07:21 37.3 C 88 18 108/66 97 PG Care Time/CCT Total # of Minutes Spent Total Time Spent with Patient: Total time spent is greater than 50% in coordination of care (as documented) at patient's floor/unit and/or counseling patient: Coding Level of Care Code 97301 Subseq Hosp Care Lvl [address] scan of lung R91.8 Hypoxia R09.02 Hyponatremia E87.1 Hypomagnesemia E83.42
--- NOTE | 2022-04-25 14:59 | Pulmonary Consultation ---
Date of Consultation April 25, 2022 Assessment & Plan (1) Abnormal CT scan of lung: (2) Hypoxia: (3) History of COVID-19: Attending: Dr. Hartmann Impression: 56-year-old male with no history of pulmonary disease. No prior tobacco abuse history. Occasional marijuana use. No vaping history. Patient healthy and active and physically fit. Has noticed decrease in endurance with associated shortness of breath over the last several months. This seems to have exacerbated over the last [address] scan of the chest negative for pulmonary emboli. There is evidence of extensive groundglass consolidation throughout both lungs with crazy paving pattern. Patient denies hemoptysis. Empirically started on antibiotics on admissions. Procalcitonin is negative. WBC 11,000. Recommendations: 1. Abnormal CT chest: * New finding of extensive groundglass opacities with crazy paving pattern. * Unknown etiology. Doubtful that this is associated with previous COVID inspection * HIV test is currently pending. Although patient may have opportunistic infection, no evidence of skin lesions or other manifestation. We will hold off on Bactrim at this time * Will start patient on azithromycin * Hold enoxaparin * Plan on therapeutic/diagnostic bronchoscopy tomorrow morning at [address] Hartmann * Will also send JENNIFER +12 reflex for autoimmune work-up. In addition, will order rheumatoid factor as well as LDH 2. Hypoxia: * No prior history of hypoxia * Patient currently on 4 L via nasal cannula and saturating in the 90s. Patient does get short of breath and fatigued with hypoxia into the low to mid 80s with ambulation * Bronchoscopy scheduled for tomorrow morning * Continue supplemental oxygen to maintain SaO2 greater than 90% 3. History of COVID-19 infection: * Diagnosed positive in September 2020 * Did not require antibiotics, steroids, hospitalization, supplemental oxygen at that time * Patient noticed development of shortness of breath in approximately March 2021. Vaccinated x3. No further infection. Current serology is negative Thank you for including us in the care of this patient. Please refer to Dr. Hartmann's addendum for further recommendations. Supervising Physician Co-Signing Physician Notes I saw and evaluated the patient with Zain Sam, and agree with findings and plan as documented in the note. 56-year-old male came with shortness of breath for approximately 2 months pro gressively getting worse Does smoke marijuana. No vaping. No birds at home. Has 4 dogs at home Patient does fall into high risk for HIV CAT scan findings do go with PJP. Other noninfectious etiology includes autoimmune process, diffuse alveolar hemorrhage Mycoplasma can also present the same way Constitutional: No acute distress HEENT: EOMI, PERRLA Respiratory system: Decreased air entry bilaterally, no wheeze, no rhonchi, positive crackles appreciated bilaterally CVS: S1-S2 positive, no murmurs or gallops Abdomen: Soft, nontender, nondistended, positive bowel sounds x4 Extremities: +2 pulses bilaterally radialis/ dorsalis pedis, no cyanosis, no edema Neuro: Awake alert oriented x3 Psych: Normal mood and affect G/U: No Arita Plan: I will start the patient on [id number] mg/kg in divided doses. Prednisone 40 mg twice daily for 5 days followed by 40 mg daily for 5 days followed by 20 mg for 11 days treating tentatively as if he has PJP Pantoprazole 40 mg on a daily basis as he will be on high-dose prednisone Continue with azithromycin for possible mycoplasma in the differential as well. Okay to discontinue Rocephin Follow-up LDH. JENNIFER with reflex, Legionella antigen and mycoplasma antibody We will asked the patient whether he was taking any supplements while working out Plan for bronchoscopy tomorrow hold all anticoagulation. N.p.o. postmidnight Risk and benefit of the procedure explained to the patient in depth He understands and agrees with the plan Please note the above document was generated using voice recognition software. It may contain grammatical, syntax or spelling errors.Any formal questions or concerns about the content, text or information contained within the body of this dictation should be directly addressed to the provider for clarification. History of Present Illness Reason for Consultation: Abnormal CT chest, Hypoxia Attending Physician: Adama Mendosa MD History of Present Illness Attending: Dr. Hartmann This is a 56-year-old male that presents with acute shortness of breath and hypoxia over the last for 5 days. He has no prior pulmonary history that he is aware of. He presented in March and had a CT scan performed which revealedextensive ground-glass consolidation is seen throughout both lungswith a "crazy paving" pattern. Patient is a lifelong non-smoker. He does have occasional use of smoking marijuana. He denies any vaping history whatsoever. 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 He reports that this occurred 25 years ago. Patient also reports a history of COVID in September 2020. He did not require hospitalization, steroids, antibiotics at that time. His roommates also contracted COVID at the same time and patient reports that they were "a lot worse than he was". Patient denies any hemoptysis. He has no chest pain or tightness. He does notice that approximately 1 year ago he began having difficulty with steps and walking long distances. Recently, neighbors have asked if he was okay as he is going much slower than normal when he walks his dogs. He still is able to walk his dogs approximately 3 miles but feels considerably short of breath and fatigued at the end of that walking. 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 He has noticed that when doing multi's muscular sets he has much more short of breath. Consequently has been limiting exercise to specific region such as upper and lower extremities only. Aside from his shortness of breath, he has no other acute complaints. Patient did report to the hospitalist on admission that he has participate in high risk behavior. Currently PCJ PCR, Fungitell and HIV testing is pending. He received 1 dose of ceftriaxone in the emergency department. Procalcitonin is negative. WBC is 11,000. Patient started on azithromycin empirically today by the hospitalist team. Patient is vaccinated x3 for COVID Allergies Allergy/AdvReac Type Severity Reaction Status Date / Time dog dander Allergy Severe Unknown Verified 04/24/22 17:20 Home Medications Medication Instructions Recorded Confirmed Type cetirizine 10 mg tablet (Zyrtec) 10 mg PO DAILY 04/24/22 04/24/22 History Patient History Medical History Abnormal CT scan of lung Hypoxia Shingles Surgical History No pertinent past surgical history Social History Smoking Status: Never smoker Hx Alcohol Use: Yes Alcohol type: beer Hx Substance Use: Yes Last Used Substance: Days (ago) Preferred Language: Yoruba Communication Ability: Effective Road Boss Required: No Beliefs That Will Affect Care: None Current Living Situation: Other Current Living Situation Comment: lives in large 7 bedroom home with 4 dogs and 2 room mates. Other Information That Helps Us Care for You: No Feels Safe at Home: Yes Safety Concerns: Feels Safe At This Time Assistive Devices: None Assistive Devices Comment: no assistive devices at home Review of Systems Review of Systems: A total of 10 systems was reviewed and is negative other than as listed in the HPI Physical Exam Physical Exam: GENERAL : No acute distress EYES: No icterus, gaze conjugate NOSE: No evidence of epistaxis MOUTH: No lesions or candidiasis NECK: Supple LUNGS: Air movement in all lung zones. Patient with difficulty with incentive spirometry. Distant breath sounds throughout HEART: Regular, rate controlled ABDOMEN: Soft, NT, ND, BS Present EXTREMITIES: No LE edema, pedal pulses intact NEURO: A&OX3 Results & Data Results & Data ([facility]) Vital Signs (Past 12 Hours) Vital Signs Temp Pulse Resp BP Pulse Ox 04/25/22 14:57 37 C 88 20 110/72 92 04/25/22 07:21 37.3 C 88 18 108/66 97 Critical Care Results & Data Vital Signs (Past 12 Hours) Vital Signs Temp Pulse Resp BP Pulse Ox 04/25/22 15:10 101 H 90 04/25/22 14:57 37 C 88 20 110/72 92 04/25/22 07:21 37.3 C 88 18 108/66 97 Lab & Micro Results (Past 24 Hours) RBC 4.27 M/uL (4.7-6.1) L 04/25/22 WBC 9.62 K/uL (4.8-10.8) 04/25/22 Hgb 12.5 g/dL (14.0-18.0) L 04/25/22 Hct 35.6 % (42-52) L 04/25/22 MCV 83.4 fL (80-100) 04/25/22 MCH 29.3 pg (25-34) 04/25/22 MCHC 35.1 g/dL (32-36) 04/25/22 RDW Standard Deviation 39.8 fL (36.4-46.3) 04/25/22 RDW Coefficient of Variation 13.2 % (11.5-14.5) 04/25/22 Plt Count 238 K/uL (130-400) 04/25/22 MPV 9.8 fL (7.4-10.4) 04/25/22 Neutrophils (%) (Auto) 76.3 % 04/25/22 Lymphocytes (%) (Auto) 17.0 % 04/25/22 Monocytes # (Auto) 0.46 K/uL (0.11-0.59) 04/25/22 Eosinophils # (Auto) 0.15 K/uL (0-0.5) 04/25/22 Immature Granulocyte % (Auto) 0.2 % 04/25/22 Neutrophils # (Auto) 7.34 K/uL (1.4-6.5) H 04/25/22 Lymphocytes # (Auto) 1.64 K/uL (1.2-3.4) 04/25/22 Monocytes # (Auto) 0.46 K/uL (0.11-0.59) 04/25/22 Eosinophils # (Auto) 0.15 K/uL (0-0.5) 04/25/22 Basophils # (Auto) 0.01 K/uL (0-0.2) 04/25/22 Immature Granulocyte # (Auto) 0.02 K/uL (0.00-0.02) 04/25/22 Na 132 mmol/L (136-145) L 04/25/22 K 4.1 mmol/L (3.5-5.1) 04/25/22 Cl 103 mmol/L (98-107) 04/25/22 CO2 22 mmol/L (21-32) 04/25/22 Anion Gap 7 (3-11) 04/25/22 BUN 17 mg/dl (6-23) 04/25/22 Creatinine 0.82 mg/dl (0.6-1.4) 04/25/22 Estimated GFR ( Amer) 113.0 ml/min 04/25/22 Estimated GFR (Non-Af Amer) 97.5 ml/min 04/25/22 BUN/Creatinine Ratio 20.7 (10-20) H 04/25/22 Glu 99 mg/dl (70-99(Fasting)) 04/25/22 Ca 8.1 mg/dl (8.5-10.1) L 04/25/22 Lactate Dehydrogenase 457 U/L (86-244) H 04/25/22 Mg 2.0 mg/dl (1.7-2.4) 04/25/22 06:54 04/25/22 Calcium Level 8.1 mg/dl (8.5-10.1) L 04/25/22 06:54 04/25/22 Diagnostic Findings (Past 24 Hours) Chest X-Ray 04/24/22 16:54 XR chest 1V portable CLINICAL HISTORY: SEPSIS TECHNIQUE: Single frontal radiograph of the chest was obtained. Comparison: None available at the time of this dictation. FINDINGS: No lines and tubes are seen. The cardiomediastinal silhouette is normal. Prominence and cephalization of the vasculature is seen. No evidence of pleural effusion or pneumothorax. IMPRESSION: Mild pulmonary edema. ACT 112: Negative or not required by law. Electronically signed by: Remy Rendon M.D. 04/24/2022 5:24 PM Chest CTA 04/24/22 17:27 CT ANGIOGRAM OF THE CHEST CLINICAL HISTORY: Dyspnea. COMPARISON STUDY: Chest x-ray dated 04/24/2022. TECHNIQUE: Following the IV administration of 120 cc of Optiray 320, CT angiogram of the chest was performed from the upper abdomen to the thoracic inlet utilizing the pulmonary embolus protocol. Images are reviewed in the axial, sagittal, and coronal planes. 3-D MIPS images are created and assessed. IV contrast was administered without complication. A dose lowering technique was utilized adhering to the principles of ALARA. CT DOSE: 269.58 mGy.cm FINDINGS: Thyroid: Imaged portions of the thyroid gland are normal in size and attenuation. Thoracic aorta: The thoracic aorta is normal in caliber and demonstrates standard 3-vessel arch anatomy. No dissection is seen. Pulmonary vasculature: The pulmonary trunk is normal in caliber. There are no filling defects identified in main, lobar, or segmental pulmonary branches to suggest pulmonary embolus. Heart: The heart is normal in size and without pericardial effusion. The coronary arteries are densely calcified. Lungs and pleural spaces: There is mild emphysematous change. Extensive groundglass consolidation is seen throughout both lungs, left greater than right. Some of this demonstrates a "crazy paving" appearance. Atelectasis is seen at the lung bases, right greater than left. There is trace right pleural effusion. The trachea and central airways are clear. Mediastinum: There are mildly enlarged mediastinal lymph nodes. Prevascular nodes measure up to 13 mm in short axis. Pretracheal nodes measure up to 10 mm short axis, and a high left paratracheal node measures up to 18 mm in short axis. Sophy: Mildly enlarged hilar lymph nodes measure up to 11 mm in short axis. Axillae: There is no axillary lymphadenopathy. Upper abdomen: The spleen is mildly enlarged measuring over 13 cm in length. Partially visualized upper abdominal viscera is within normal limits. Skeletal structures: No lytic or blastic bony lesions are seen. IMPRESSION: 1. There is no evidence of pulmonary embolus in the main, lobar, or segmental pulmonary arteries. 2. Extensive groundglass consolidation is seen throughout both lungs as above. Given the reported history of sepsis this likely represents an infectious/inflammatory pneumonitis. 3. Given the somewhat atypical "crazy paving" appearance, a follow-up chest CT in 3-4 months time is recommended for reassessment and to document resolution. This carries a broad differential, and other etiologies such as pulmonary edema, pulmonary hemorrhage, pulmonary alveolar proteinosis, sarcoidosis, or a drug- induced pneumonitis could also have this appearance. 4. Mild emphysema. 5. Mildly enlarged mediastinal and hilar lymph nodes are likely reactive. These can also be reassessed at follow-up. 6. Mild splenomegaly. 7. Trace right pleural effusion. ACT 112: Negative or not required by law. Electronically signed by: Zain Melton M.D. 04/24/2022 6:27 PM I & O Totals 24 Hours 04/24/22 04/25/22 04/26/22 06:59 06:59 06:59 Intake Total 2274.166 / 2274.166 Output Total Balance 2274.166 / 2274.166 -1 / -1 Cumulative 04/24/22 16:09 thru 04/25/22 11:54 Intake Total 2274.166 Output Total 1 Balance 2273.166 RT Ventilator Mngmt (Last Documented) Ventilator Ordered Settings Respiratory Rate 20 04/25/22 14:57 Ventilator - PT Measurements Respiratory Rate 20 PG Care Time/CCT Total # of Minutes Spent Total Time Spent with Patient: Total time spent is greater than 50% in coordination of care (as documented) at patient's floor/unit and/or counseling patient: 60 Coding Level of Care Code 58509 Inpt Consult Level [address] scan of lung R91.8 Hypoxia R09.02 History of COVID-19 Z86.16
[2022-04-25] MEDS ORDERED: AZITHROMYCIN 500 MG in DEXTROSE 5% 250 ML IV ONE (16:00)
[2022-04-25] MEDS: cefTRIAXone SODIUM 1,000 MG in DEXTROSE 5% 50 ML IV SCH (16:26)
[2022-04-25] MEDS ORDERED: predniSONE 10 MG TABLET PO SCH (18:15)
[2022-04-25] MEDS: SULFAMETHOXAZOLE/TRIMETHOPRIM DS 800/160MG TAB PO SCH (19:11)
[2022-04-25] MEDS: PANTOprazole 40 MG TAB PO SCH (19:11)
[2022-04-25] MEDS: predniSONE 10 MG TABLET PO SCH (20:52)
[2022-04-26] MEDS: SULFAMETHOXAZOLE/TRIMETHOPRIM DS 800/160MG TAB PO SCH ×3 (03:27→18:32)
[2022-04-26 06:11] LABS: BUN Creatinine Ratio 21.3 (10-20); Calcium 8.5 mg/dl (8.5-10.1); Creatinine Clr Calc Pharmacy 86.4 ml/min; Est GFR (African American) 109.2 ml/min; Est GFR (Non-African American) 94.3 ml/min; Magnesium 2.2 mg/dl (1.7-2.4); Potassium 4.7 mmol/L (3.5-5.1)
[2022-04-26 06:35] LABS: Basophils # (auto) 0.01 K/uL (0-0.2); Basophils % (auto) 0.2 %; Eosinophils # (auto) 0.01 K/uL (0-0.5); Eosinophils % (auto) 0.2 %; Hematocrit (blood only) 37.8 % (42-52); Hemoglobin 13.2 g/dL (14.0-18.0); Immature Granulocytes # (auto) 0.02 K/uL (0.00-0.02); Immature Granulocytes % (auto) 0.4 %; Lymphocytes # (auto) 1.54 K/uL (1.2-3.4); Lymphocytes % (auto) 27.5 %; Mean Corpuscular Hemoglobin 29.4 pg (25-34); Mean Corpuscular Hgb Conc 34.9 g/dL (32-36); Mean Corpuscular Volume 84.2 fL (80-100); Mean Platelet Volume 9.9 fL (7.4-10.4); Monocytes # (auto) 0.15 K/uL (0.11-0.59); Monocytes % (auto) 2.7 %; Neutrophils # (auto) 3.87 K/uL (1.4-6.5); Platelet Count 262 K/uL (130-400); RDW Coefficient of Variation 13.2 % (11.5-14.5); RDW Standard Deviation 40.4 fL (36.4-46.3); Red Blood Count 4.49 M/uL (4.7-6.1)
[2022-04-26] MEDS ORDERED: fentaNYL citrate 100 MCG/2 ML VIAL ONE (07:33)
[2022-04-26] MEDS ORDERED: MIDAZOLAM HCL 5 MG/ML 1 ML VIAL ONE (07:33)
--- NOTE | 2022-04-26 08:01 | History & Physical Bridge Note ---
Date of Service April 26, 2022 History & Physical Bridge Note I have examined the patient, reviewed the History & Physical and in the interval since the performance of the History & Physical I have noted the following changes of clinical significance: no changes noted
--- NOTE | 2022-04-26 08:02 | Pre Anesthesia Assessment ---
Date of Service April 26, 2022 Pre Sedation Assessment Vital Signs Temp Pulse Pulse Resp BP Pulse Ox 04/26/22 07:59 80 16 116/73 99 04/26/22 07:55 36.5 C 77 16 113/69 99 04/25/22 22:12 36.0 C L 74 18 108/72 90 04/25/22 18:43 37.5 C 04/25/22 15:10 101 H 90 04/25/22 14:57 37 C 88 20 110/72 92 Pre-Sedation Airway Assessment Smoking Status: Never smoker Hx Sleep Apnea: No Short, Thick Neck: No Thyromental Distance: > or= 3.5 Finger Breadths Oral Cavity: + WNL Mallampati Class: III ASA: ASA2 NPO Status Date of Last Intake of Fluids: 04/25/22 Time of Last Intake of Fluids: 19:00 Date of Last Intake of Solid Food: 04/25/22 Time of Last Intake of Solid Foods: 19:00 Procedure Planning Contraindications for Sedation: none Current Medications Reviewed: Yes Notes The planned sedation has been discussed with the patient. Informed Consent was obtained. I have identified the patient, determined the appropriateness of sedation and have assessed the patient immediately prior to the procedure. All medicine(s) and interventions are by my order.
--- NOTE | 2022-04-26 08:50 | XRay Report ---
XR chest 1V portable CLINICAL HISTORY: post bronch TECHNIQUE: Single frontal radiograph of the chest was obtained. Comparison: Comparison is made to chest radiograph 03/26/2022 FINDINGS: No lines and tubes are seen. The cardiomediastinal silhouette is normal. Multifocal airspace opacitie s are seen. No evidence of pleural effusion or pneumothorax. IMPRESSION: Multifocal airspace opacities may represent atelectasis, pneumonia, and/or aspiration. No evidence of pneumothorax in this patient status post bronchoscopy. ACT 112: Negative or not required by law. Electronically signed by: Remy Rendon M.D. 04/26/2022 8:48 AM
--- NOTE | 2022-04-26 08:50 | Post Anesthesia Assessment ---
Date of Service April 26, 2022 Post Sedation Assessment Vital Signs Temp Pulse Pulse Resp BP Pulse Ox 04/26/22 08:34 36.5 C 82 16 108/63 92 04/26/22 08:33 81 16 100/57 L 92 04/26/22 08:28 81 16 109/67 92 04/26/22 08:25 84 16 106/64 95 04/26/22 08:20 99 H 16 117/65 94 04/26/22 08:15 91 H 16 115/69 98 04/26/22 08:10 87 16 127/73 99 04/26/22 07:59 80 16 116/73 99 04/26/22 07:55 36.5 C 77 16 113/69 99 04/25/22 22:12 36.0 C L 74 18 108/72 90 04/25/22 18:43 37.5 C 04/25/22 15:10 101 H 90 04/25/22 14:57 37 C 88 20 110/72 92 Recovery Score Activity: Moves 4 extremities Respiration: Deep Breath/Cough Circulation: +/-20% PreAnes Value Consciousness: Fully Awake Oxygen Saturation: O2 needed for >90% Post Anesthesia Score: 9 Discharge Sedation Level of Care: Fast Track Phase II Post Sedation Plan On clinical assessment, the patient appears to have tolerated the sedation without complications. Patient is recovering as anticipated. Patient will continue to be monitored by nursing and may be discharged when sedation discharge criteria are met per below protocol. Upon Completions of procedure up to 15 minutes continue every 5 minute vital signs and the P.A.R. score; then discharge to a Phase I or Fast Track to Phase II per the following guidelines: * Discharge Patient to appropriate Phase II area if PAR is 8 or greater or return to pre- procedure baseline. The post - procedure orders will be as directed. * If PAR score is less than 8 or not return to pre-procedure baseline then patient will follow Phase I monitoring till PAR is reached for Phase II. The Phase I may be done in procedure room or may call to secure a Phase I area. * If naloxone or flumazenil are used for reversal, hold in Phase I for continued monitoring from when last reversal dose was given for a minimum of 60 minutes or longer pending the nurse and/or physician discretion of patient condition before discharge to Phase II. Please call the Sedation Physician to re-evaluate and complete post-note for discharge to Phase II area. Do NOT discharge from procedure sedation or Phase 1 until post- sedation evaluation note is complete by procedure /sedation MD Sedation Discharge Instructions to be given to the patient at discharge to home.
--- NOTE | 2022-04-26 08:54 | Procedure Note ---
Procedure Note: Bronchoscopy Procedure PREOPERATIVE DIAGNOSIS: Bilateral diffuse pulmonary infiltrates POSTOPERATIVE DIAGNOSIS: Bilateral diffuse pulmonary infiltrates PROCEDURE PERFORMED: Flexible fiberoptic bronchoscopy with bronchoalveolar lavage, transbronchial biopsies COMPLICATIONS: None. INDICATION: Rule out infection PROCEDURE: After obtaining an informed consent, the patient was brought to the Bronchoscopy Suite. The patient had appropriate oxygen, blood pressure, heart rate, and respiratory rate monitoring applied and monitored continuously throughout the procedure. Supplemental oxygen via nasal cannula as per nursing records was applied to the nasopharynx with adequate saturations achieved. Topical anesthesia with nebulized 1% lidocaine was achieved. Subsequent to this, the patient was premedicated with 5 mg of midazolam and 125 mcg of fentanyl. Upper Airway: The oropharynx and larynx were well visualized and showed thick mucus secretion, otherwise negative. There was normal vocal cord motion without masses or lesions. Additional topical anesthesia with 1% lidocaine was applied to the trachea and brennan. The trachea appeared normal.The bronchoscope was then advanced through the brennan, which was sharp. The scope was then advanced into the right main stem and each segment, subsegement in the right upper lobe, right middle lobe and right lower lobe were visualized. There was minimal amount of clear secretion which was suctioned out. There were no other findings including evidence of mass, anatomic distortions, or hemorrhage. The bronchoscope was subsequently withdrawn and advanced into the left mainstem. Again, each segment and subsegment was well visualized. No specific masses or other lesions were identified throughout the tracheobronchial tree on the left. There was minimal amount of clear secretion which was suctioned out. The bronchoscope was then wedged in the left upper lobe lingula superior segment and bronchoalveolar lavage samples were obtained. 40 ml of saline was instilled and 25 ml of fluid was aspirated back.The bronchoscope was withdrawn and the area was suctioned clear. The bronchoscope was then wedged in the left lower lobe anterior segment and bronchoalveolar lavage samples were obtained. 80 ml of saline was instilled and 30 ml of fluid was aspirated back.The bronchoscope was withdrawn and the area was suctioned clear. The bronchoscope was then re-advanced into the left lower lobe anterior segment and multiple transbronchial biopsies were taken.. Minimal hemorrhage was identified and suctioned clear without difficulty. Cold saline was utilized to achive adequate hemostasis. The bronchoscope was then withdrawn to the mainstem. The area was suctioned clear. The bronchoscope was then withdrawn. The patient tolerated the procedure well without evidence of desaturation or complications. Bronchoalveolar lavage samples were sent for cell count, Gram stain and bacterial culture, AFB culture and smear, fungal culture and smear, PJP PCR, histoplasma antigen, cryptococcus antigen and cytology. Transbronchial biopsies were sent for tissue culture (bacteria, AFB and fungal) and pathology. Recommendations: Follow-up chest x-ray Follow-up cytology and pathology Please note the above document was generated using voice recognition software. It may contain grammatical, syntax or spelling errors.Any formal questions or concerns about the content, text or information contained within the body of this dictation should be directly addressed to the provider for clarification. [facility] [place] Procedure Codes (Charges) Pulmonary/Thoracic Procedure 1: Pulmonary and Thoracic: 56919 Dx bronchoscopy/BAL Procedure 2: Pulmonary and Thoracic: 65347 Bronchoscopy w/ transbronchial lung bx Sedation/Anesthesia Procedure 1: Sedation/Anesthesia: 43321 Mod Sedation by the same physician;Init15 Min Child Age 5 & Up Procedure 2: Sedation/Anesthesia: 25840 Mod Sedation by the same physician; Ea [id number] Minutes Total Sedation Time (minutes): 23
--- NOTE | 2022-04-26 08:57 | XRay Report ---
XR chest 1V portable CLINICAL HISTORY: Hypoxia TECHNIQUE: Single frontal radiograph of the chest was obtained. Comparison: Comparison is made to chest radiograph 04/24/2022 FINDINGS: No lines and tubes are seen. The cardiomediastinal silhouette is normal. Prominence and cephalization of the vasculature is seen. Interval mild worsening in multifocal airspace opacities compatible with pneumonia. No evidence of pleural effusion or pneumothorax. IMPRESSION: 1. Stable mild pulmonary edema. 2. Interval increased prominence of multifocal airspace opacities compatible with pneumonia. ACT 112: Negative or not required by law. Electronically signed by: Remy Rendon M.D. 04/26/2022 8:56 AM
[2022-04-26] MEDS: predniSONE 10 MG TABLET PO SCH ×2 (10:51→20:07)
[2022-04-26] MEDS: PANTOprazole 40 MG TAB PO SCH (10:51)
[2022-04-26] MEDS: CETIRIZINE HCL 10 MG TABLET PO SCH (10:52)
[2022-04-26 11:06] LABS: Eosinophil Body Fluid Man 5 %; Fluid Mono/Macrophage 55 %; Lymphocyte Body Fluid Man 23 %
[2022-04-26 11:16] LABS: Neutrophil Body Fluid Man 16 %
--- NOTE | 2022-04-26 12:50 | Pulmonology Progress Note ---
Date of Service April 26, 2022 Assessment & Plan (1) Abnormal CT scan of lung: (2) Hypoxia: (3) History of COVID-19: Plan: Attending: Dr. Hartmann Impression: 56-year-old male with no history of pulmonary disease. No prior tobacco abuse history. Occasional marijuana use. No vaping history. Patient healthy and active and physically fit. Has noticed decrease in endurance with associated shortness of breath over the last several months. This seems to have exacerbated 4 to [address] scan of the chest negative for pulmonary emboli. There is evidence of extensive groundglass consolidation throughout both lungs with crazy paving pattern consistent with PJP. Patient denies hemoptysis. Empirically started on antibiotics on admissions. Changed to weight based Bactrim on 04/25/2022. Procalcitonin is negative. WBC 11,000. Recommendations: 1. Abnormal CT chest: * New finding of extensive groundglass opacities with peripheral sparing * Bronchoscopy performed 04/26/2022. Airways were clear. Samples were taken and sent to the lab for evaluation * Unknown etiology. Doubtful that this is associated with previous COVID inspection. Await AFB results from bronchoscopy. Only pets are dogs. Patient has no birds or exposure to birds or bird droppings. * HIV test is currently pending. Although patient may have opportunistic infection, no evidence of skin lesions or other manifestation. * May restart enoxaparin * JENNIFER +12 reflex for autoimmune work-up, rheumatoid factor are pending * LDH elevated 2. Hypoxia: * No prior history of hypoxia * Patient currently on 4 L via nasal cannula and saturating in the 90s. Patient does get short of breath and fatigued with hypoxia into the low to mid 80s with ambulation * Bronchoscopy completed 04/26/2022. Await results * Continue supplemental oxygen to maintain SaO2 greater than 90% * Increase ambulation as tolerated * Patient started on Bactrim per weight-based protocol. Patient also started on steroids with taper 3. History of COVID-19 infection: * Diagnosed positive in September 2020 * Did not require antibiotics, steroids, hospitalization, supplemental oxygen at that time * Patient noticed development of shortness of breath in approximately March 2021. Vaccinated x3. No further infection. Current serology is negative Thank you for including us in the care of this patient. We will continue to follow along with you at this time Admission and Anticipated Discharge Date Admission Date: April 24, 2022 Supervising Physician Co-Signing Physician Notes I saw and evaluated the patient with Zain Sam, and agree with findings and plan as documented in the note. Patient seen and examined at bedside. He underwent bronchoscopy early in the morning. Denies any chest pain Overall he states that he is feeling much better. He was saturating 98% on 2 L nasal cannula at the time of examination. Constitutional: No acute distress HEENT: EOMI, PERRLA Respiratory system: Decreased air entry bilaterally, no wheeze, no rhonchi, positive crackles appreciated bilaterally CVS: S1-S2 positive, no murmurs or gallops Abdomen: Soft, nontender, nondistended, positive bowel sounds x4 Extremities: +2 pulses bilaterally radialis/ dorsalis pedis, no cyanosis, no edema Neuro: Awake alert oriented x3 Psych: Normal mood and affect G/U: No Arita Plan: Follow-up BAL cytology and micro Continue with Bactrim for total of 21 days, prednisone for total 21 days taper as ordered Pantoprazole to be continued till the patient is on prednisone Okay to titrate down oxygen to keep oxygen saturation greater than 90 Please note the above document was generated using voice recognition software. It may contain grammatical, syntax or spelling errors.Any formal questions or concerns about the content, text or information contained within the body of this dictation should be directly addressed to the provider for clarification. Review of Systems Review of Systems: A total of 10 systems was reviewed and is negative other than as listed in the HPIA total of 10 systems was reviewed and is negative other than as listed in the HPI Physical Exam Physical Exam: GENERAL : No acute distress EYES: No icterus, gaze conjugate NOSE: No evidence of epistaxis MOUTH: No lesions or candidiasis NECK: Supple LUNGS: Fine crackles at the bases. No bronchospasm. No rhonchi. HEART: Regular, rate controlled ABDOMEN: Soft, NT, ND, BS Present EXTREMITIES: No LE edema, pedal pulses intact NEURO: A&OX3 Results & Data Results & Data ([facility]) Vital Signs (Past 12 Hours) Vital Signs Temp Pulse Pulse Resp BP BP Pulse Ox 04/26/22 10:42 36.7 C 78 18 106/68 99 04/26/22 09:59 36.5 C 81 18 99/64 L 94 04/26/22 09:30 36.5 C 73 18 111/64 92 04/26/22 09:04 36.5 C 71 16 97/65 L 95 04/26/22 08:49 36.3 C L 75 16 98/65 L 94 04/26/22 08:34 36.5 C 82 16 108/63 92 04/26/22 08:33 81 16 100/57 L 92 04/26/22 08:28 81 16 109/67 92 04/26/22 08:25 84 16 106/64 95 04/26/22 08:20 99 H 16 117/65 94 04/26/22 08:15 91 H 16 115/69 98 04/26/22 08:10 87 16 127/73 99 04/26/22 07:59 80 16 116/73 99 04/26/22 07:55 36.5 C 77 16 113/69 99 Critical Care Results & Data Vital Signs (Past 12 Hours) Vital Signs Temp Pulse Pulse Resp BP BP Pulse Ox 04/26/22 10:42 36.7 C 78 18 106/68 99 04/26/22 09:59 36.5 C 81 18 99/64 L 94 04/26/22 09:30 36.5 C 73 18 111/64 92 04/26/22 09:04 36.5 C 71 16 97/65 L 95 04/26/22 08:49 36.3 C L 75 16 98/65 L 94 04/26/22 08:34 36.5 C 82 16 108/63 92 04/26/22 08:33 81 16 100/57 L 92 04/26/22 08:28 81 16 109/67 92 04/26/22 08:25 84 16 106/64 95 04/26/22 08:20 99 H 16 117/65 94 04/26/22 08:15 91 H 16 115/69 98 04/26/22 08:10 87 16 127/73 99 04/26/22 07:59 80 16 116/73 99 04/26/22 07:55 36.5 C 77 16 113/69 99 Lab & Micro Results (Past 24 Hours) RBC 4.49 M/uL (4.7-6.1) L 04/26/22 WBC 5.60 K/uL (4.8-10.8) 04/26/22 Hgb 13.2 g/dL (14.0-18.0) L 04/26/22 Hct 37.8 % (42-52) L 04/26/22 MCV 84.2 fL (80-100) 04/26/22 MCH 29.4 pg (25-34) 04/26/22 MCHC 34.9 g/dL (32-36) 04/26/22 RDW Standard Deviation 40.4 fL (36.4-46.3) 04/26/22 RDW Coefficient of Variation 13.2 % (11.5-14.5) 04/26/22 Plt Count 262 K/uL (130-400) 04/26/22 MPV 9.9 fL (7.4-10.4) 04/26/22 Neutrophils (%) (Auto) 69.0 % 04/26/22 Lymphocytes (%) (Auto) 27.5 % 04/26/22 Monocytes # (Auto) 0.15 K/uL (0.11-0.59) 04/26/22 Eosinophils # (Auto) 0.01 K/uL (0-0.5) 04/26/22 Immature Granulocyte % (Auto) 0.4 % 04/26/22 Neutrophils # (Auto) 3.87 K/uL (1.4-6.5) 04/26/22 Lymphocytes # (Auto) 1.54 K/uL (1.2-3.4) 04/26/22 Monocytes # (Auto) 0.15 K/uL (0.11-0.59) 04/26/22 Eosinophils # (Auto) 0.01 K/uL (0-0.5) 04/26/22 Basophils # (Auto) 0.01 K/uL (0-0.2) 04/26/22 Immature Granulocyte # (Auto) 0.02 K/uL (0.00-0.02) 04/26/22 Na 134 mmol/L (136-145) L 04/26/22 K 4.7 mmol/L (3.5-5.1) 04/26/22 Cl 102 mmol/L (98-107) 04/26/22 CO2 23 mmol/L (21-32) 04/26/22 Anion Gap 9 (3-11) 04/26/22 BUN 19 mg/dl (6-23) 04/26/22 Creatinine 0.89 mg/dl (0.6-1.4) 04/26/22 Estimated GFR ( Amer) 109.2 ml/min 04/26/22 Estimated GFR (Non-Af Amer) 94.3 ml/min 04/26/22 BUN/Creatinine Ratio 21.3 (10-20) H 04/26/22 Glu 131 mg/dl (70-99(Fasting)) H 04/26/22 Ca 8.5 mg/dl (8.5-10.1) 04/26/22 Mg 2.2 mg/dl (1.7-2.4) 04/26/22 05:27 04/26/22 Calcium Level 8.5 mg/dl (8.5-10.1) 04/26/22 05:27 04/26/22 Microbiology 04/26/22 08:18 Fungal Smear - Final Ba Lavage,Left Lower Lobe 04/26/22 08:18 Gram Stain - Final Ba Lavage,Left Lower Lobe 04/26/22 08:18 Fungal Smear - Final Ba Lavage,Left Upper Lobe 04/26/22 08:18 Gram Stain - Final Ba Lavage,Left Upper Lobe 04/24/22 17:02 Aerobic Blood Culture - Preliminary Blood No growth in Aerobic bottle after 24 hours. Anaerobic Blood Culture - Preliminary No growth in Anaerobic bottle after 24 hours. 04/24/22 16:55 Aerobic Blood Culture - Preliminary Blood No growth in Aerobic bottle after 24 hours. Anaerobic Blood Culture - Preliminary No growth in Anaerobic bottle after 24 hours. Diagnostic Findings (Past 24 Hours) Chest X-Ray 04/26/22 06:00 XR chest 1V portable CLINICAL HISTORY: Hypoxia TECHNIQUE: Single frontal radiograph of the chest was obtained. Comparison: Comparison is made to chest radiograph 04/24/2022 FINDINGS: No lines and tubes are seen. The cardiomediastinal silhouette is normal. Prominence and cephalization of the vasculature is seen. Interval mild worsening in multifocal airspace opacities compatible with pneumonia. No evidence of pleural effusion or pneumothorax. IMPRESSION: 1. Stable mild pulmonary edema. 2. Interval increased prominence of multifocal airspace opacities compatible with pneumonia. ACT 112: Negative or not required by law. Electronically signed by: Remy Rendon M.D. 04/26/2022 8:56 AM Chest X-Ray 04/26/22 08:28 XR chest 1V portable CLINICAL HISTORY: post bronch TECHNIQUE: Single frontal radiograph of the chest was obtained. Comparison: Comparison is made to chest radiograph 03/26/2022 FINDINGS: No lines and tubes are seen. The cardiomediastinal silhouette is normal. Multifocal airspace opacities are seen. No evidence of pleural effusion or pneumothorax. IMPRESSION: Multifocal airspace opacities may represent atelectasis, pneumonia, and/or aspiration. No evidence of pneumothorax in this patient status post bronchoscopy. ACT 112: Negative or not required by law. Electronically signed by: Remy Rendon M.D. 04/26/2022 8:48 AM I & O Totals 24 Hours 04/25/22 04/26/22 04/27/22 06:59 06:59 06:59 Intake Total 2274.166 / 2274.166 315 / 315 Output Total / Balance 2274.166 / 2274.166 314 / 314 Cumulative 04/24/22 16:09 thru 04/26/22 06:01 Intake Total 2589.166 Output Total 1 Balance 2588.166 RT Ventilator Mngmt (Last Documented) Ventilator Ordered Settings Respiratory Rate 18 04/26/22 10:42 Ventilator - PT Measurements Respiratory Rate 18 PG Care Time/CCT Total # of Minutes Spent Total Time Spent with Patient: Total time spent is greater than 50% in coordination of care (as documented) at patient's floor/unit and/or counseling patient: Coding Level of Care Code 99681 Subseq Hosp Care Lvl [address] scan of lung R91.8 Hypoxia R09.02 History of COVID-19 Z86.16
--- NOTE | 2022-04-26 14:16 | Hospitalist Progress Note ---
Date of Service April 26, 2022 Assessment & Plan (1) Abnormal CT scan of lung: (2) Hypoxia: (3) History of COVID-19: Plan: Impression: 56-year-old male with no history of pulmonary disease. No prior tobacco abuse history. Occasional marijuana use. No vaping history. Patient healthy and active and physically fit. Has noticed decrease in endurance with associated shortness of breath over the last several months. This seems to have exacerbated over the last [address] scan of the chest negative for pulmonary emboli. There is evidence of extensive groundglass consolidation throughout both lungs with crazy paving pattern. Patient denies h emoptysis. Empirically started on antibiotics on admissions. Procalcitonin is negative. WBC 11,000. 1. Abnormal CT chest: * New finding of extensive bilateral groundglass opacities * Unknown etiology. Doubtful that this is associated with previous COVID infection * HIV test is currently pending. Although patient may have opportunistic infection, no evidence of skin lesions or other manifestation. * Currently on oral Bactrim and prednisone. Appreciate pulmonary medicine consultation. Bronchoscopy with bronchoalveolar lavage completed April 26. Studies are pending. 2. Hypoxia: Acute hypoxic respiratory failure * No prior history of hypoxia * Patient currently on 4 L via nasal cannula and saturating in the 90s. Patient does get short of breath and fatigued with hypoxia into the low to mid 80s with ambulation * Bronchoscopy completed April 26. Multiple studies are pending. * Continue supplemental oxygen to maintain SaO2 greater than 90% 3. History of COVID-19 infection: * Diagnosed positive in September 2020 * Did not require antibiotics, steroids, hospitalization, supplemental oxygen at that time * Pulmonary medicine believes current events are unlikely related to that COVID infection. Disposition: Eventual discharge to home, probably on oxygen. Hopefully tomorrow, April 27 Admission and Anticipated Discharge Date Admission Date: April 24, 2022 Subjective Alert and oriented. No distress. He remains on oxygen at 4 L/min. Bronchoalveolar lavage specimen results pending. He remains on oral Bactrim and prednisone. He is anxious to go home and hopefully can be discharged tomorrow, April 27, on oxygen per nasal cannula with outpatient pulmonary follow-up. Review of Systems Review of Systems: Constitutional-no fever or chills ENT-no blurred vision, no double vision, no epistaxis, no sore throat Respiratory-exertional dyspnea. Nonproductive cough. No hemoptysis. No pleuritic pain Cardiac-no palpitations, no chest pain, no syncope GI-no nausea, vomiting, diarrhea, melena, hematochezia -no urinary retention, no urinary incontinence, no dysuria, no hematuria Musculoskeletal-no joint pain, no muscle tenderness Skin-no bruising, no rashes, no pruritus Neuro-no isolated weakness, no paresthesia, no weakness Psych-no depression, no anxiety Physical Exam Physical Exam: General-alert and oriented x3, no fevers, no chills HEENT-head atraumatic and normocephalic, TMs intact bilaterally, pupils equal and reactive to light, extraocular muscles intact Neck-no lymphadenopathy or thyromegaly, trachea midline Chest- adventitious bilateral respiratory noise. No wheezing . No dullness to percussion clear to auscultation percussion. Cardiac-regular rate and rhythm, normal S1 and S2, no murmurs Abdomen-normal bowel sounds, nontender, no hepatosplenomegaly Extremities-no cyanosis, clubbing, or edema Neuro-cranial nerves II through XII intact, motor and sensory function within normal limits, strength symmetrical , no focal deficits Psych-normal affect, normal mood Results & Data Results & Data ([facility]) Vital Signs (Past 12 Hours) Vital Signs Temp Pulse Pulse Resp BP BP Pulse Ox 04/26/22 10:42 36.7 C 78 18 106/68 99 04/26/22 09:59 36.5 C 81 18 99/64 L 94 04/26/22 09:30 36.5 C 73 18 111/64 92 04/26/22 09:04 36.5 C 71 16 97/65 L 95 04/26/22 08:49 36.3 C L 75 16 98/65 L 94 04/26/22 08:34 36.5 C 82 16 108/63 92 04/26/22 08:33 81 16 100/57 L 92 04/26/22 08:28 81 16 109/67 92 04/26/22 08:25 84 16 106/64 95 04/26/22 08:20 99 H 16 117/65 94 04/26/22 08:15 91 H 16 115/69 98 04/26/22 08:10 87 16 127/73 99 04/26/22 07:59 80 16 116/73 99 04/26/22 07:55 36.5 C 77 16 113/69 99 Laboratory Results 04/26/22 05:27 04/26/22 05:27 PG Care Time/CCT Total # of Minutes Spent Total Time Spent with Patient: Total time spent is greater than 50% in coordination of care (as documented) at patient's floor/unit and/or counseling patient: Coding Level of Care Code 25602 Subseq Hosp Care Lvl [address] scan of lung R91.8 Hypoxia R09.02 History of COVID-19 Z86.16
[2022-04-26] MEDS: cefTRIAXone SODIUM 1,000 MG in DEXTROSE 5% 50 ML IV SCH (15:53)
[2022-04-26] MEDS ORDERED: AZITHROMYCIN 250 MG in DEXTROSE 5% 250 ML IV ONE (16:00)
[2022-04-27] MEDS: SULFAMETHOXAZOLE/TRIMETHOPRIM DS 800/160MG TAB PO SCH ×2 (02:58→11:51)
[2022-04-27 08:18] LABS: Basophils # (auto) 0.01 K/uL (0-0.2); Basophils % (auto) 0.1 %; Hematocrit (blood only) 37.7 % (42-52); Hemoglobin 13.2 g/dL (14.0-18.0); Immature Granulocytes # (auto) 0.02 K/uL (0.00-0.02); Immature Granulocytes % (auto) 0.3 %; Lymphocytes # (auto) 1.05 K/uL (1.2-3.4); Lymphocytes % (auto) 13.4 %; Mean Corpuscular Hemoglobin 28.6 pg (25-34); Mean Corpuscular Volume 81.6 fL (80-100); Mean Platelet Volume 9.7 fL (7.4-10.4); Monocytes # (auto) 0.25 K/uL (0.11-0.59); Monocytes % (auto) 3.2 %; Neutrophils # (auto) 6.51 K/uL (1.4-6.5); Platelet Count 293 K/uL (130-400); RDW Standard Deviation 39.5 fL (36.4-46.3); Red Blood Count 4.62 M/uL (4.7-6.1); White Blood Count 7.84 K/uL (4.8-10.8)
[2022-04-27] MEDS: CETIRIZINE HCL 10 MG TABLET PO SCH (08:28)
[2022-04-27] MEDS: predniSONE 10 MG TABLET PO SCH (08:29)
[2022-04-27] MEDS: PANTOprazole 40 MG TAB PO SCH (08:29)
[2022-04-27] MEDS: ACETAMINOPHEN 325 MG TAB PO PRN (08:29)
[2022-04-27 08:37] LABS: BUN Creatinine Ratio 23.3 (10-20); Calcium 8.6 mg/dl (8.5-10.1); Creatinine Clr Calc Pharmacy 89.4 ml/min; Est GFR (African American) 110.8 ml/min; Est GFR (Non-African American) 95.6 ml/min; Magnesium 2.3 mg/dl (1.7-2.4); Potassium 4.6 mmol/L (3.5-5.1)
--- NOTE | 2022-04-27 11:06 | Hospitalist Progress Note ---
Date of Service April 27, 2022 Assessment & Plan (1) Abnormal CT scan of lung: Plan: Bronchoscopy with bronchoalveolar lavage completed April 26. Pathology and culture results remain pending. He is now on Bactrim and prednisone. Oxygen requirements appear to be decreasing. He will need oxygen at home temporarily. He is stable for discharge. (2) Hypoxia: Plan: Currently on 2 L oxygen. He will need oxygen at home and hopefully this will be weaned off soon (3) History of COVID-19: Plan: COVID-19 occurred last year and 2020. It is unlikely that current events are related to his previous COVID infection Plan: Discharge to home today, April 27. Continue oral Bactrim, prednisone, and Protonix. Follow-up with pulmonary medicine as an outpatient to review br onchoscopy pathology findings and culture results. Continue oxygen at 2 L/min per nasal cannula. Admission and Anticipated Discharge Date Admission Date: April 24, 2022 Subjective Alert and oriented. No acute problems. He is now requiring 2 L of oxygen per nasal cannula and will need home oxygen for a while. He will be discharged home today, April 27, on oral Bactrim, prednisone, Protonix. He will follow-up with pulmonary medicine as an outpatient for review of the biopsy results and culture results. Review of Systems Review of Systems: Constitutional-no fever or chills ENT-no blurred vision, no double vision, no epistaxis, no sore throat Respiratory-no cough, no wheezing. Dyspnea on exertion Cardiac-no palpitations, no chest pain, no syncope GI-no nausea, vomiting, diarrhea, melena, hematochezia -no urinary retention, no urinary incontinence, no dysuria, no hematuria Musculoskeletal-no joint pain, no muscle tenderness Skin-no bruising, no rashes, no pruritus Neuro-no isolated weakness, no paresthesia, no weakness Psych-no depression, no anxiety Physical Exam Physical Exam: General-alert and oriented x3, no fevers, no chills HEENT-head atraumatic and normocephalic, TMs intact bilaterally, pupils equal and reactive to light, extraocular muscles intact Neck-no lymphadenopathy or thyromegaly, trachea midline Chest-bilateral adventitious respiratory noise. No wheezing. No dullness Cardiac-regular rate and rhythm, normal S1 and S2, no murmurs Abdomen-normal bowel sounds, nontender, no hepatosplenomegaly Extremities-no cyanosis, clubbing, or edema Neuro-cranial nerves II through XII intact, motor and sensory function within normal limits, strength symmetrical , no focal deficits Psych-normal affect, normal mood Results & Data Results & Data ([facility]) Vital Signs (Past 12 Hours) Vital Signs Temp Pulse Resp BP Pulse Ox 04/27/22 07:37 36.9 C 71 22 115/69 94 Laboratory Results 04/27/22 07:47 04/27/22 07:47 PG Care Time/CCT Total # of Minutes Spent Total Time Spent with Patient: Total time spent is greater than 50% in coordination of care (as documented) at patient's floor/unit and/or counseling patient: Coding Level of Care Code 82166 Subseq Hosp Care Lvl [address] scan of lung R91.8 Hypoxia R09.02 History of COVID-19 Z86.16
--- NOTE | 2022-04-27 11:10 | Discharge Summary ---
Date of Service April 27, 2022 Admission HPI Per Admitting Provider 56 YOM with no PCP- Medical history of COVID and urticarial skin eruption from pet exposure in 2020. Patient reports that he had COVID in 2019 and has never really gotten back to a cardiorespiratory baseline. The patient comes to the [facility] today for complaints of 4 day history of fevers/chills and increase in dyspnea and cough. He has is coughing up think clear secretions without blood. He reports increase temperature to 101.3 on . He also endorses nightly sweats since and waking up every morning with wet shirt and sheets. He feels his energy remains about the same. 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 He feels more dyspneic and tired with any multi-muscle exercise like squats, bench, or pull ups. If he is just doing leg press or sitting he can get through his sets and reps. In the EMD the patient had routine labs performed, blood cultures, and PCT done. He had CT scan of his chest performed- which Extensive ground-glass consolidation is seen throughout both lungswith a "crazy paving" pattern. The patient denies any travel, any new pets (only has 4 dogs) no birds, no new medications. He does vape and does occasionally smoke marijuana. He does endorse high risk behavior- so informed verbal consent for HIV has been sent. Patient received dose of Rocephin in the EMD. When he was treated above for her skin eruption he was placed on steroids- and feels that he may have felt better during that time. Overall this is wide differential, will send sputum culture, PCJ PCR, Fungitell. His PCT is negative and WBC at 11. Will hold on further antibiotics. Will consult pulmonary for evaluation for further workup Principal Diagnosis Interstitial lung disease, acute hypoxic respiratory failure, hyponatremia, hypomagnesemia Discharge Exam General-alert and oriented x3, no fevers, no chills HEENT-head atraumatic and normocephalic, TMs intact bilaterally, pupils equal and reactive to light, extraocular muscles intact Neck-no lymphadenopathy or thyromegaly, trachea midline Chest-bilateral adventitious noise. No wheezing. No dullness to percussion Cardiac-regular rate and rhythm, normal S1 and S2, no murmurs Abdomen-normal bowel sounds, nontender, no hepatosplenomegaly Extremities-no cyanosis, clubbing, or edema Neuro-cranial nerves II through XII intact, motor and sensory function within normal limits, strength symmetrical , no focal deficits Psych-normal affect, normal mood Discharge Data Allergies Allergy/AdvReac Type Severity Reaction Status Date / Time dog dander Allergy Severe Unknown Verified 04/24/22 17:20 Consultations 04/24/22 18:48 ED Decision to Admit Stat 04/24/22 21:17 Consult Pulmonology Routine Procedures Performed Operation Date: 04/26/22 08:00 Actual Procedures p Bronchoscopy (Bilateral) - Wilmar Hartmann MD Ordered Studies 04/24/22 17:27 CT angio chest PE protocol Stat Hospital Course (1) Abnormal CT scan of lung: Bronchoscopy with bronchoalveolar lavage completed April 26. Pathology and culture results remain pending. He is now on Bactrim and prednisone. Oxygen requirements appear to be decreasing. He will need oxygen at home temporarily. He is stable for discharge. (2) Hypoxia: Currently on 2 L oxygen. He will need oxygen at home and hopefully this will be weaned off soon (3) History of COVID-19: COVID-19 occurred last year and 2020. It is unlikely that current events are related to his previous COVID infection Discharge to home today, April 27. Continue oral Bactrim, prednisone, and Protonix. Follow-up with pulmonary medicine as an outpatient to review bronchoscopy pathology findings and culture results. Continue oxygen at 2 L/min per nasal cannula. Total Time Total Time Spent Total Time Spent (In Minutes): 35 minutes Discharge Plan Discharge Items Patient Disposition: Home - Self-Care Reason For Visit: FEVERS, DSYPNEA Discharge Diagnosis: Interstitial lung disease, acute hypoxic respiratory failure, hyponatremia, hypomagnesemia Activity: As commented below Activity Comment: Avoid exertion. Wear oxygen continuously. Off work until further notice Non-emergency contact: Primary Care Provider Call non-emergency contact if: you have any medication questions Follow-up/Referrals: PCP,NO [Primary Care Provider] - Diet: Regular Addtl Attending Provider Instructions: Continue Bactrim, prednisone, Protonix until seen by pulmonary medicine Pending Studies at Discharge: Yes Studies:: Bronchoscopy pathology results, bronchoscopy culture results Stand-Alone Forms: My [employer], Smoking Cessation Medications and DC Order Prescriptions: New sulfamethoxazole-trimethoprim [Bactrim DS] 800-160 mg Tablet 1 tab PO BID Qty: 20 RF: 0 pantoprazole 40 mg Tablet,Delayed Release (Dr/Ec) 40 mg PO QAM Qty: 14 RF: 0 prednisone 20 mg tablet 40 mg PO DAILY Qty: 30 RF: 0 Continued cetirizine [Zyrtec] 10 mg Tablet 10 mg PO DAILY RF: 0 Discharge Orders: Discharge Order (Routine); Ordered 04/27/22 Ordered By: Frank Carroll Admission Data Admit Date/Time: 04/24/22 19:13 Attending Provider: Frank Carroll Admit Provider: Lino Olivera Primary Care Provider: PCP,NO Other Providers: Lino Olivera ; Blaise Whitaker Coding Level of Care Code D/C DAY MANAGEMENT >[address] scan of lung R91.8 Hypoxia R09.02 History of COVID-19 Z86.16
--- NOTE | 2022-04-27 13:53 | Pulmonology Progress Note ---
Date of Service April 27, 2022 Assessment & Plan (1) Abnormal CT scan of lung: (2) Hypoxia: (3) History of COVID-19: Plan: Attending: Dr. Hartmann Impression: 56-year-old male with no history of pulmonary disease. No prior tobacco abuse history. Occasional marijuana use. No vaping history. Patient healthy and active and physically fit. Has noticed decrease in endurance with associated shortness of breath over the last several months. This seems to have exacerbated 4 to [address] [address] scan of the chest negative for pulmonary emboli. There is evidence of extensive groundglass consolidation throughout both lungs with crazy paving pattern consistent with PJP. Patient denies hemoptysis. Empirically started on antibiotics on admissions. Changed to weight based Bactrim on 04/25/2022. Procalcitonin is negative. WBC 11,000. Recommendations: 1. Abnormal CT chest: * New finding of extensive groundglass opacities with peripheral sparing * Bronchoscopy performed 04/26/2022. Airways were clear. Samples were taken and sent to the lab for evaluation * Unknown etiology. Doubtful that this is associated with previous COVID inspection. Await AFB results from bronchoscopy. Only pets are dogs. Patient has no birds or exposure to birds or bird droppings. * HIV, cryptococcal, and immunological studies including JENNIFER 12, and rheumatoid factor are currently pending. * Patient should remain on Bactrim and prednisone for 21 days. Continue on pantoprazole while on steroids * Follow-up with Dr. Hartmann in 2 to 3 weeks in the office. The office staff will call him with an appointment 2. Hypoxia: * No prior history of hypoxia * Patient currently on 4 L via nasal cannula and saturating in the 90s. Patient does get short of breath and fatigued with hypoxia into the low to mid 80s with ambulation * Bronchoscopy completed 04/26/2022. Await results * Continue supplemental oxygen to maintain SaO2 greater than 90% * Increase ambulation as tolerated * Patient started on Bactrim per weight-based protocol. Patient also started on steroids with taper * Patient should be placed on supplemental oxygen on discharge after two-step is completed. Patient is aware that he may require oxygen until complete work-up is completed. 3. History of COVID-19 infection: * Diagnosed positive in September 2020 * Did not require antibiotics, steroids, hospitalization, supplemental oxygen at that time * Patient noticed development of shortness of breath in approximately March 2021. Vaccinated x3. No further infection. Current serology is negative Thank you for including us in the care of this patient. Patient is okay for discharge home. We will follow-up with him in the office in the next [address] Hartmann. Admission and Anticipated Discharge Date Admission Date: April 24, 2022 Supervising Physician Co-Signing Physician Notes I discussed the patient with Zain Sam, and agree with findings and plan as documented in the note. I personally spoke with Dr. Harley as well as Dr. Green regarding the bronchoscopy. 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 Recommend patient to complete the course of 21 days of Bactrim along with prednisone. He needs to follow-up with ID given the new diagnosed HIV. Continue with oxygen to keep O2 saturation between 90-92% Please note the above document was generated using voice recognition software. It may contain grammatical, syntax or spelling errors.Any formal questions or concerns about the content, text or information contained within the body of this dictation should be directly addressed to the provider for clarification. Subjective Attending: Dr. Hartmann Patient seen and examined at bedside in room 376. He is sitting up in bed talking on his cell phone without any conversational dyspnea or evidence of dis comfort. He denies any chest pain or tightness. Shortness of breath is improved. He continues to require supplemental oxygen but is comfortable with the oxygen in place. He denies any hemoptysis. No fever or chills. He was "jittery" last night and attributes this to the prednisone. Patient feels ready for discharge and understands that he will need supplemental oxygen and follow- up with pulmonary office. He has no other acute complaints. Review of Systems Review of Systems: A total of 10 systems was reviewed and is negative other than as listed in the HPI Physical Exam Physical Exam: GENERAL : No acute distress EYES: No icterus, gaze conjugate NOSE: No evidence of epistaxis MOUTH: No lesions or candidiasis NECK: Supple LUNGS: Very scarce bronchospasm which clears with cough. No rales or rhonchi appreciated. HEART: Regular, rate controlled ABDOMEN: Soft, NT, ND, BS Present EXTREMITIES: No LE edema, pedal pulses intact NEURO: A&OX3 Results & Data Results & Data ([facility]) Vital Signs (Past 12 Hours) Vital Signs Temp Pulse Pulse Pulse Pulse Pulse Pulse 04/27/22 13:35 36.9 C 04/27/22 10:36 106 H 106 H 103 H 113 H 86 103 H 04/27/22 07:37 36.9 C Pulse Resp Resp Resp Resp Resp Resp 04/27/22 13:35 71 22 04/27/22 10:36 24 22 20 24 18 04/27/22 07:37 71 22 Resp BP BP Pulse Ox Pulse Ox Pulse Ox Pulse Ox 04/27/22 13:35 115/69 97/65 L 94 04/27/22 10:36 16 85 L 88 L 91 04/27/22 07:37 115/69 94 Pulse Ox Pulse Ox Pulse Ox 04/27/22 13:35 04/27/22 10:36 82 L 92 94 04/27/22 07:37 Critical Care Results & Data Vital Signs (Past 12 Hours) Vital Signs Temp Pulse Pulse Pulse Pulse Pulse Pulse 04/27/22 13:35 36.9 C 04/27/22 10:36 106 H 106 H 103 H 113 H 86 103 H 04/27/22 07:37 36.9 C Pulse Resp Resp Resp Resp Resp Resp 04/27/22 13:35 71 22 04/27/22 10:36 24 22 20 24 18 04/27/22 07:37 71 22 Resp BP BP Pulse Ox Pulse Ox Pulse Ox Pulse Ox 04/27/22 13:35 115/69 97/65 L 94 04/27/22 10:36 16 85 L 88 L 91 04/27/22 07:37 115/69 94 Pulse Ox Pulse Ox Pulse Ox 04/27/22 13:35 04/27/22 10:36 82 L 92 94 04/27/22 07:37 Lab & Micro Results (Past 24 Hours) RBC 4.62 M/uL (4.7-6.1) L 04/27/22 WBC 7.84 K/uL (4.8-10.8) 04/27/22 Hgb 13.2 g/dL (14.0-18.0) L 04/27/22 Hct 37.7 % (42-52) L 04/27/22 MCV 81.6 fL (80-100) 04/27/22 MCH 28.6 pg (25-34) 04/27/22 MCHC 35.0 g/dL (32-36) 04/27/22 RDW Standard Deviation 39.5 fL (36.4-46.3) 04/27/22 RDW Coefficient of Variation 13.0 % (11.5-14.5) 04/27/22 Plt Count 293 K/uL (130-400) 04/27/22 MPV 9.7 fL (7.4-10.4) 04/27/22 Neutrophils (%) (Auto) 83.0 % 04/27/22 Lymphocytes (%) (Auto) 13.4 % 04/27/22 Monocytes # (Auto) 0.25 K/uL (0.11-0.59) 04/27/22 Eosinophils # (Auto) 0.00 K/uL (0-0.5) 04/27/22 Immature Granulocyte % (Auto) 0.3 % 04/27/22 Neutrophils # (Auto) 6.51 K/uL (1.4-6.5) H 04/27/22 Lymphocytes # (Auto) 1.05 K/uL (1.2-3.4) L 04/27/22 Monocytes # (Auto) 0.25 K/uL (0.11-0.59) 04/27/22 Eosinophils # (Auto) 0.00 K/uL (0-0.5) 04/27/22 Basophils # (Auto) 0.01 K/uL (0-0.2) 04/27/22 Immature Granulocyte # (Auto) 0.02 K/uL (0.00-0.02) 04/27/22 Na 133 mmol/L (136-145) L 04/27/22 K 4.6 mmol/L (3.5-5.1) 04/27/22 Cl 103 mmol/L (98-107) 04/27/22 CO2 22 mmol/L (21-32) 04/27/22 Anion Gap 8 (3-11) 04/27/22 BUN 20 mg/dl (6-23) 04/27/22 Creatinine 0.86 mg/dl (0.6-1.4) 04/27/22 Estimated GFR ( Amer) 110.8 ml/min 04/27/22 Estimated GFR (Non-Af Amer) 95.6 ml/min 04/27/22 BUN/Creatinine Ratio 23.3 (10-20) H 04/27/22 Glu 124 mg/dl (70-99(Fasting)) H 04/27/22 Ca 8.6 mg/dl (8.5-10.1) 04/27/22 Mg 2.3 mg/dl (1.7-2.4) 04/27/22 07:47 04/27/22 Calcium Level 8.6 mg/dl (8.5-10.1) 04/27/22 07:47 04/27/22 Microbiology 04/26/22 08:18 Gram Stain - Final Ba Lavage,Left Lower Lobe Bronchial Culture - Preliminary Scant normal meaghan present; Final report to follow. 04/26/22 08:18 Gram Stain - Final Ba Lavage,Left Upper Lobe Bronchial Culture - Preliminary Light normal meaghan present, final report to follow. 04/26/22 08:18 Acid Fast Bacilli Smear - Final Ba Lavage,Left Lower Lobe 04/26/22 08:18 Acid Fast Bacilli Smear - Final Ba Lavage,Left Upper Lobe 04/24/22 17:02 Aerobic Blood Culture - Preliminary Blood No growth in Aerobic bottle after 48 hours. Anaerobic Blood Culture - Preliminary No growth in Anaerobic bottle after 48 hours. 04/24/22 16:55 Aerobic Blood Culture - Preliminary Blood No growth in Aerobic bottle after 48 hours. Anaerobic Blood Culture - Preliminary No growth in Anaerobic bottle after 48 hours. 04/26/22 08:18 Fungal Smear - Final Ba Lavage,Left Lower Lobe 04/26/22 08:18 Fungal Smear - Final Ba Lavage,Left Upper Lobe I & O Totals 24 Hours 04/26/22 04/27/22 04/28/22 06:59 06:59 06:59 Intake Total 315 / 315 60 / 60 Output Total Balance 314 / 314 60 / 60 Cumulative 04/24/22 16:09 thru 04/27/22 13:35 Intake Total 2649.166 Output Total 1 Balance 2648.166 RT Ventilator Mngmt (Last Documented) Ventilator Ordered Settings Respiratory Rate [Recovery] 04/27/22 10:36 Respiratory Rate [Corrective 3 04/27/22 10:36 ] Respiratory Rate [Corrective 2 04/27/22 10:36 ] Respiratory Rate [Corrective 1 04/27/22 10:36 ] Respiratory Rate [Exercise] 24 04/27/22 10:36 Respiratory Rate [Resting] 16 04/27/22 10:36 Respiratory Rate 22 04/27/22 13 :35 Ventilator - PT Measurements Respiratory Rate [Recovery] 18 Respiratory Rate [Corrective 3 20 ] Respiratory Rate [Corrective 2 22 ] Respiratory Rate [Corrective 1 24 ] Respiratory Rate [Exercise] 24 Respiratory Rate [Resting] 16 Respiratory Rate 22 PG Care Time/CCT Total # of Minutes Spent Total Time Spent with Patient: Total time spent is greater than 50% in coordination of care (as documented) at patient's floor/unit and/or counseling patient: 30 minutes Coding Level of Care Code 80543 Subseq Hosp Care Lvl [address] scan of lung R91.8 Hypoxia R09.02 History of COVID-19 Z86.16
[2022-04-27 14:01] LABS: HIV 1,2 Ag,Ab 4th gen REPEATEDLY REACTIVE (NON-REACTIVE)
--- NOTE | 2022-04-27 15:30 | XRay Report ---
XR chest 2V PA/lateral HISTORY: 56 years-old Male Hypoxia acute hypoxia COMPARISON: Chest radiograph 04/26/2022, CTA chest 04/24/2022 TECHNIQUE: PA and lateral views of the chest FINDINGS: Mildly improved aeration of the lungs with persistent interstitial and ill-defined pulmonary opacitie s. No pneumothorax, or large pleural effusion. The cardiac silhouette is normal in size. Mild bilater al hilar prominence is unchanged. The bones appear grossly intact. IMPRESSION: Mildly improved aeration of lungs with persistent interstitial coarsening. Continued foll ow-up is recommended. ACT 112: Negative or not required by law. The above report was generated using voice recognition software. It may contain grammatical, syntax o r spelling errors. Electronically signed by: Jovan Parada M.D. 04/27/2022 3:28 PM
[2022-04-28 05:52] LABS: HIV 1 Ab POSITIVE (NEGATIVE); HIV 2 Ab NEGATIVE (NEGATIVE)
[2022-04-28 19:16] LABS: Fungitell (1-3)-B-D-Glucan >500 pg/mL
[2022-04-29 12:22] LABS: Pneumocystis jirovecii PCRQual DETECTED; Pneumocystis jirovecii Source BRONCHIAL
[2022-04-30 17:21] LABS: Cryptococcal Antigen Not Detected (Not Detected); Source Serum
[2022-05-01] MEDS ORDERED: predniSONE 10 MG TABLET PO SCH (09:00)
[2022-05-04 20:21] LABS: Anti Cardiolipin Ab IgG 13.4 GPL-U/mL; Anti Cardiolipin Ab IgM 2.5 MPL-U/mL; Anti Nuclear Antibody Screen NEGATIVE (NEGATIVE); Anti-Cardiolipin Ab IgA 3.9 APL-U/mL; Anti-Centromere Ab <1.0 NEG AI (<1.0 NEG); Anti-SS-A <1.0 NEG AI (<1.0 NEG); Anti-SS-B <1.0 NEG AI (<1.0 NEG); Chromatin Antibody <1.0 NEG AI (<1.0 NEG); Complement C3 127 mg/dL (82-185); DNA ds Crithidia NEGATIVE (NEGATIVE); Microsomal Ab <1 IU/mL (<9); Mycoplasma pneumoniae Ab, IgM 82 U/mL (<770); RNP Antibody <1.0 NEG AI (<1.0 NEG); Rheumatoid Factor <14 IU/mL (<14); Scleroderma Anti Scl-70 Ab <1.0 NEG AI (<1.0 NEG); Sm Antibody <1.0 NEG AI (<1.0 NEG)
[2022-05-06] MEDS ORDERED: predniSONE 10 MG TABLET PO SCH (09:00)
[2022-05-08 12:17] LABS: Legionella Culture Source BAL; Source BAL
--- NOTE | 2022-05-09 06:36 | Coding Query ---
CODING QUERY To promote full compliance with coding requirements relating to patient care, provider participation is requested in all cases of log operations coordinator uncertainty. Please assist us with the question(s) below: Coding Question(s): Patient admitted with 4 - day history of cough, fevers and hypoxia. BAL done - labs were pending at discharge. Patient during this admission tested positive for HIV. BAL positive for Pneumocys jirovecci . CT performed on admission was abnormal. Patient discharged on Prednisone and Bactrim. Patient discharged with followup to Pulmonary . Please review the BAL aspirate results and provide a diagnosis . Thanks for your help! Jose Johnson [facility] Physician's Response(s): HIV positive. Pneumocystis pneumonia, POA. Principal Diagnosis: "that condition established after study, to be chiefly responsible for occasioning the admission of the patient to the hospital for care." Co-Existing Principal Diagnosis: "when two or more diagnoses equally meet the criteria for principal diagnosis as determined by the circumstances of admission, diagnostic work up, and/or therapy provided, and the Alphabetic Index, Tabular List, or another coding guideline does not provide sequencing direction, any one of the diagnoses may be sequenced first." "When the physician has documented what appears to be a current diagnosis in the body of the record, but has not included the diagnosis in the final diagnostic statement, the physician should be asked whether the diagnosis should be added." (Source Coding Clinic 2 QTR90. p3-4) RUBÉN
== END 2022-04-27 16:22 | disposition home or self-care (01) | DRG 969 ==
LOC: ED 16:09 → SUATTDRO 19:13 → 3N 19:13